=== PATIENT | female | born 1950 | race Caucasian/White ===

== ENCOUNTER 2017-01-14 21:24 | Inpatient (IN) | payer OTHER, MEDICARE, BC ==
[~2017-01-14] VITALS: Ht 160 cm; Wt 69.0 kg
[~2017-01-14 21:24] MED LIST: ALBU0.086 NEB; ALBU6.7H INH; BUSP10 PO; DOXY100T PO; FIORIC PO; FLUO60TA PO; HALO1TAB25 PO; ROBIDM5S PO
[2017-01-14 21:43] VITALS: BP 114/63; PULSE 85; RESP 20; O2SAT 99
[2017-01-14] MEDS ORDERED: SODIUM CHLOR 0.9% 1000 ML INJ 1,000 ML IV SCH (21:57)
[2017-01-14] MEDS ORDERED: ONDANSETRON HCL 4 MG/2 ML VIAL IVP ONE (22:00)
[2017-01-14] MEDS ORDERED: SODIUM CHLORIDE 0.9% FLUSH 5 ML FLUSH IVF PRN (22:00)
[2017-01-14] MEDS ORDERED: DIPHTH/TETANUS/ACEL PERTUSSIS (BOOSTER) 0.5 ML VIAL/PFS IM ONE (22:00)
[2017-01-14 22:01] VITALS: RESP 18; O2SAT 100
[2017-01-14 22:07] VITALS: BP 107/58; PULSE 60; RESP 18; O2SAT 100
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
[2017-01-14 22:24] LABS: BASOPHIL # 0.1 TH/MM3 (0-0.2); BASOPHIL % 0.4 % (0.0-2.0); EOSINOPHIL # 0.3 TH/MM3 (0-0.4); EOSINOPHIL % 1.6 % (0.0-4.0); LYMPH % 26.9 % (9.0-44.0); LYMPHOCYTE # 5.3 TH/MM3 (1.0-4.8); MEAN CELL VOLUME 89.2 FL (80.0-100.0); MEAN CORPUSCULAR HEMOGLOBIN 29.7 PG (27.0-34.0); MEAN CORPUSCULAR HGB CONC 33.4 % (32.0-36.0); MONO % 5.7 % (0.0-8.0); NEUT % 65.4 % (16.0-70.0); PLATELET COUNT 322 TH/MM3 (150-450); RED BLOOD COUNT 3.81 MIL/MM3 (4.00-5.30); RED CELL DISTRIBUTION WIDTH 12.9 % (11.6-17.2); WHITE BLOOD COUNT 19.8 TH/MM3 (4.0-11.0)
[2017-01-14 22:26] LABS: HEMO FLAGS AUTO DIFF
[2017-01-14 22:40] VITALS: BP 117/56; PULSE 80; RESP 18; O2SAT 99
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
[2017-01-14 22:42] LABS: APTT (PATIENT) 22.4 SEC (24.3-30.1); BICARBONATE 27.4 MEQ/L (21.0-32.0); INTERNATIONAL NORMALIZED RATIO 1.1 RATIO; POTASSIUM 3.2 MEQ/L (3.5-5.1); PROTHROMBIN TIME - PATIENT 11.8 SEC (9.8-11.6)
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
[2017-01-14] MEDS ORDERED: MORPHINE SULFATE 4 MG/ML INJ IV PUSH ONE ×2 (23:00→23:45)
[2017-01-14 23:02] LABS: BANDS 2 % (0-6); EOSINOPHILS 2 % (0-4); MYELOCYTES 1 % (0-0); NEUTROPHIL # MANUAL DIFF 13.9 TH/MM3 (1.8-7.7); PLATELET ESTIMATE SMEAR NORMAL (NORMAL); PLATELET MORPHOLOGY NORMAL (NORMAL); POLYS (SEG NEUTROPHILS) 67 % (16-70); WBC DIFF SAMPLE 100
[2017-01-14 23:03] LABS: SCAN/DIFF FINAL DIFF MANUAL
[2017-01-14 23:16] VITALS: BP 126/59; PULSE 84; RESP 18; O2SAT 99
[2017-01-14] MEDS ORDERED: IOHEXOL 350 MG/ML 10 ML VIAL (for RAD DIAG) IV ONE (23:33)
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
[2017-01-15] VITALS (12 sets, daily range): BP systolic 97–118; BP diastolic 47–73; PULSE 69–105; RESP 15–18; TEMP 96.1–99.4; O2SAT 93–99
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
[2017-01-15] MEDS ORDERED: METOCLOPRAMIDE HCL 10 MG/2 ML VIAL IV PUSH ONE (00:15)
[2017-01-15] MEDS ORDERED: POTASSIUM CHLOR 20 MEQ PREMIX 100 ML IV ONE (01:30)
[2017-01-15] MEDS ORDERED: SODIUM CHLORIDE 0.9% FLUSH 5 ML FLUSH FLUSH PRN (01:30)
[2017-01-15] MEDS ORDERED: NALOXONE HCL 0.4 MG/ML AMP IV PRN (01:30)
[2017-01-15] MEDS ORDERED: ACETAMINOPHEN 325 MG TAB PO PRN (01:30)
[2017-01-15] MEDS ORDERED: MORPHINE SULFATE 4 MG/ML INJ IV PRN (01:30)
[2017-01-15] MEDS ORDERED: ONDANSETRON HCL 4 MG/2 ML VIAL IVP PRN (01:30)
[2017-01-15] MEDS: SODIUM CHLOR 0.9% 1000 ML INJ 1,000 ML IV SCH ×2 (01:50→12:30)
[2017-01-15] MEDS: MORPHINE SULFATE 4 MG/ML INJ IV PRN ×6 (04:23→21:21)
[2017-01-15] MEDS: SODIUM CHLORIDE 0.9% FLUSH 5 ML FLUSH FLUSH SCH ×2 (09:00→21:21)
--- NOTE | 2017-01-15 14:12 | EKG ---
Date Performed: 01/14/2017 Time Performed: 23:13:49 PTAGE: 66 years EKG: Sinus rhythm NORMAL ECG NO PREVIOUS TRACING DOCTOR: Dave Nick Interpretating Date/Time 01/15/2017 14:11:15
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
[2017-01-15] MEDS ORDERED: guaiFENesin/DEXTROMETHORPHAN 200 MG/20 MG/10 ML CUP PO PRN (15:00)
[2017-01-15] MEDS ORDERED: ALBUTEROL SULFATE 90 MCG/ACT HFA 8 GM INHALER INH PRN (15:00)
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
[2017-01-15] MEDS: RESP: ALBUTEROL 2.5 MG/3 ML NEB (SCH) NEB ×3 (15:49→23:06)
[2017-01-15 19:08] LABS: BLOOD, URINE SMALL (NEG); COMMENT (UR) CULTURE INDICATED; CULTURE IF INDICATED CULTURE INDICATED; GLUCOSE,URINE NEG (NEG); HYALINE CAST, URINE 1 /lpf (RARE); KETONE, URINE NEG (NEG); NITRITE,URINE NEG (NEG); PH, URINE 6.5 (5.0-8.5); SQUAMOUS EPITHELIAL CELL URINE <1 /hpf (0-5); URINE COLOR YELLOW (YELLW/STRAW)
[2017-01-15] MEDS: busPIRone HCL 10 MG TAB PO SCH (21:20)
[2017-01-15] MEDS: HALOPERIDOL 2 MG TAB PO SCH (21:20)
[2017-01-16] VITALS (7 sets, daily range): BP systolic 94–108; BP diastolic 47–59; PULSE 69–110; RESP 16–18; TEMP 96.4–98.8; O2SAT 93–99
[2017-01-16] MEDS: MORPHINE SULFATE 4 MG/ML INJ IV PRN ×4 (00:59→21:15)
[2017-01-16] MEDS: RESP: ALBUTEROL 2.5 MG/3 ML NEB (SCH) NEB ×6 (03:11→23:51)
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
[2017-01-16 08:03] LABS: BASOPHIL % 0.2 % (0.0-2.0); EOSINOPHIL # 0.1 TH/MM3 (0-0.4); EOSINOPHIL % 0.7 % (0.0-4.0); HEMATOCRIT 29.1 % (35.0-46.0); HEMO FLAGS DIFF FINAL; LYMPH % 16.8 % (9.0-44.0); LYMPHOCYTE # 2.5 TH/MM3 (1.0-4.8); MEAN CELL VOLUME 88.8 FL (80.0-100.0); MEAN CORPUSCULAR HEMOGLOBIN 29.6 PG (27.0-34.0); MEAN CORPUSCULAR HGB CONC 33.3 % (32.0-36.0); MONO % 8.2 % (0.0-8.0); NEUT % 74.1 % (16.0-70.0); PLATELET COUNT 246 TH/MM3 (150-450); RED BLOOD COUNT 3.27 MIL/MM3 (4.00-5.30); WHITE BLOOD COUNT 14.9 TH/MM3 (4.0-11.0)
[2017-01-16] MEDS: SODIUM CHLORIDE 0.9% FLUSH 5 ML FLUSH FLUSH SCH ×2 (08:04→19:45)
[2017-01-16] MEDS: busPIRone HCL 10 MG TAB PO SCH ×2 (08:04→19:44)
[2017-01-16] MEDS: FLUoxetine HCL 20 MG CAP PO SCH (08:04)
[2017-01-16] MEDS: SODIUM CHLOR 0.9% 1000 ML INJ 1,000 ML IV SCH ×2 (08:05→17:39)
[2017-01-16 08:28] LABS: BICARBONATE 23.9 MEQ/L (21.0-32.0); POTASSIUM 3.5 MEQ/L (3.5-5.1)
[2017-01-16] MEDS ORDERED: DEXAMETHASONE SOD PHOS 4 MG/ML VIAL ONE (09:52)
[2017-01-16] MEDS ORDERED: MIDAZOLAM HCL 2 MG/2 ML VIAL ONE (09:52)
[2017-01-16] MEDS ORDERED: FAMOTIDINE 20 MG/2 ML VIAL ONE (09:56)
[2017-01-16] MEDS ORDERED: VANCOMYCIN HCL 1000 MG VIAL ONE (09:59)
[2017-01-16] MEDS ORDERED: ceFAZolin 2 GM PREMIX 50 ML ONE (09:59)
[2017-01-16] MEDS ORDERED: GENTAMICIN SULFATE 80 MG/2 ML VIAL ONE (10:00)
[2017-01-16] MEDS ORDERED: ACETAMINOPHEN 1000 MG/100 ML VIAL IV ONE (10:05)
--- NOTE | 2017-01-16 12:37 | PD.OP ---
cc: Paulo Jean MD Operative Report Date of Surgery: Jan 16, 2017 Preoperative Diagnosis: Minimally displaced left proximal humerus fracture, minimally displaced left ulna shaft fracture, displaced proximal ulna fracture, dislocated left radial head, displaced left radial neck fracture Postoperative Diagnosis: Procedure: Open treatment of Monteggia fracture with open reduction internal fixation of left proximal ulna, open reduction internal fixation left radial neck Surgeon: Paulo Jean Operations Specialists(s): JEAN Barrios PA-C The surgical procedure was assisted by my physician publisher assistant. My P.A. presence was necessary throughout this case for the manipulation and positioning of the surgical extremity. My P.A. was assisting me throughout the duration of this procedure. The skill set of a physician publisher assistant was medically necessary to complete this procedure. During the surgical case the hvac/r service technician was working at the back table and the physician publisher assistant was directly assisting me. Operation and Findings: Patient was seen and evaluated preoperatively. Patient was found to have a displaced fracture dislocation of the left olecranon with radial neck fracture. The risk and benefits of the surgery were discussed in depth and informed consent was obtained. Risk of surgery include bleeding, infection, painful hardware, wound, case, elbow stiffness, elbow dislocation, loss of motion, elbow arthritis, injuries to arteries nerves or blood vessels, weakness and numbness of hand, as well as medical complications associated with general anesthesia. All questions were answered. Patient was brought to operating room. IV sedation and anesthesia were administered. Patient was placed into a lateral decubitus position. Timeout procedure was performed. IV antibiotics were administered prior to incision. The operative arm was prepped with alcohol followed by Hibiclens and draped in usual sterile fashion. Procedure began with a 6 inch incision over the olecranon. Subcutaneous tissue dissected with Bovie. Fracture site was visualized. Fascia was elevated around the fracture site. There was mild comminution of the fracture site. Fracture fragments were gently manipulated. A fracture tenaculum was used to aid in reduction. Multiple K wires were used for provisional fixation. The reduction of the ulna was confirmed under fluoroscopy. A Synthes proximal plate was selected. Plate was provisionally held with K wires 3.5 cortical screws were used to compress plate to bone. Multiple cortical screws were placed in the ulna shaft. Multiple locking screws were placed in the proximal ulna. All screws were predrilled and premeasured for appropriate length. Additional 2.7 cortical screws were placed outside of the plate to capture additional metaphyseal fragments. K wires were removed. Next attention was turned to the radial head. The radial head was visualized. The radial neck fracture was significantly displaced. The radial neck was now reduced up to the radial head. K wires were used to hold provisional fixation. [place] confirmed appropriate reduction of the radial head. A Synthes proximal radius plate was selected. Plate was provisionally held to bone with K wires. 2.4 cortical screws were used to compress plate to bone. Additional locking screws were placed proximally. Additional cortical screws were placed in the shaft. K wires were removed. Fluoroscopy confirmed excellent alignment of the radial neck. Final fluoroscopy revealed excellent of fractures well-placed hardware. Articular surface appeared to be in near anatomic alignment. The elbow joint and radiocapitellar joints were concentrically reduced. The distal ulna shaft fracture was also well aligned. Wound was now thoroughly irrigated. Incision was now closed with #1 Vicryl, 3-0 Vicryl, and masood. Sterile dressings were applied. Patient's placed a well molded well-padded splint. Patient was transferred to recovery in stable condition. Paulo Jean MD Jan 12, 2017 12:36 Paulo Jean MD Jan 16, 2017 12:36
[2017-01-16] MEDS ORDERED: Post-op Orders (for Pharmacy) MISC XX ONE (12:45)
[2017-01-16] MEDS ORDERED: MORPHINE SULFATE 4 MG/ML INJ IV PUSH PRN (12:45)
[2017-01-16] MEDS ORDERED: NEOSTIGMINE 3 MG/3 ML SYR IV ONE (12:49)
[2017-01-16] MEDS ORDERED: ePHEDrine/NS 25 MG/5 ML SYR IV ONE (12:49)
[2017-01-16] MEDS ORDERED: ONDANSETRON HCL 4 MG/2 ML VIAL IV PUSH ONE (12:49)
[2017-01-16] MEDS ORDERED: PHENYLEPH/NS 1000 MCG/10 ML SYR IV ONE (12:49)
[2017-01-16] MEDS ORDERED: PROPOFOL 200 MG/20 ML AMP IV ONE (12:49)
[2017-01-16] MEDS ORDERED: BACITRACIN TOP OINT 15 GM TUBE ONE (12:52)
[2017-01-16] MEDS ORDERED: LACTATED RINGER'S 1000 ML INJ 1,000 ML IV ONE (12:54)
[2017-01-16] MEDS ORDERED: fentaNYL CITRATE 250 MCG/5 ML AMP ONE (13:25)
--- NOTE | 2017-01-16 14:26 | RADRPT ---
EXAM DATE/TIME: 01/16/2017 12:17 [place] COMPARISON: ELBOW LEFT LIMITED (AP & LAT), January 14, 2017, 22:15. INDICATIONS : ORIF left elbow. MEDICAL HISTORY : None. SURGICAL HISTORY : None. ENCOUNTER: Subsequent ACUITY: 3 days PAIN SCORE: Non-responsive. LOCATION: Left proximal radius and ulna. FINDINGS: Two view examination of the left elbow demonstrates postsurgical changes following open reduction and internal fixation of fractures involving the proximal radius and ulna. The ulnar fracture demonstrat es multiple fragments. Extra medullary plates have been used for stabilization and realignment. There is good anatomic alignment of the joint. CONCLUSION: Satisfactory alignment of fracture fragments and joint following ORIF. Niall Roberto MD on January 16, 2017 at 14:23 Board Certified Radiologist. This report was verified electronically.
[2017-01-16] MEDS: ceFAZolin 2 GM PREMIX 50 ML IV SCH (17:38)
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
[2017-01-16] MEDS: ACETAMINOPHEN/HYDROcodone 325 MG/7.5 MG TAB PO PRN (19:44)
[2017-01-16] MEDS: HALOPERIDOL 2 MG TAB PO SCH (19:44)
--- NOTE | 2017-01-16 20:35 | RADRPT ---
EXAM DATE/TIME: 01/16/2017 20:07 [facility] COMPARISON: HUMERUS LEFT (MIN 2VWS), January 14, 2017, 22:09. INDICATIONS : Follow-up left shoulder fracture. MEDICAL HISTORY : None. SURGICAL HISTORY : None. ENCOUNTER: Subsequent ACUITY: 3 days PAIN SCORE: 10/10 LOCATION: Left shoulder. FINDINGS: Surgical neck fracture again seen of the left humerus with mild posterior displacement and angulation deformity. Greater tuberosity and articular surfaces appear intact. CONCLUSION: Surgical neck fracture of the left humerus with mild posterior displacement/angulation not significan tly changed. No other or new fracture demonstrated. Zach Benedict MD on January 16, 2017 at 20:32 Board Certified Radiologist. This report was verified electronically.
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
[2017-01-17] VITALS (8 sets, daily range): BP systolic 97–147; BP diastolic 49–93; PULSE 92–106; RESP 16–20; TEMP 97–99; O2SAT 95–100
[2017-01-17] MEDS: MORPHINE SULFATE 4 MG/ML INJ IV PRN ×5 (00:47→18:23)
[2017-01-17] MEDS: ceFAZolin 2 GM PREMIX 50 ML IV SCH (00:47)
[2017-01-17] MEDS: SODIUM CHLOR 0.9% 1000 ML INJ 1,000 ML IV SCH (03:17)
[2017-01-17] MEDS: RESP: ALBUTEROL 2.5 MG/3 ML NEB (SCH) NEB ×5 (03:57→19:46)
--- NOTE | 2017-01-17 06:41 | PD.ORT.PN ---
Subjective Subjective Remarks Resting in bed with pain controlled. She states that she has left posterior rib wall pain with deep breathing or coughs Objective Vitals Vital Signs Date Time Temp Pulse Resp B/P Pulse Ox O2 Delivery O2 Flow Rate FiO2 01/17/17 04:00 97.0 99 17 114/59 97 01/17/17 00:00 98.1 97 16 112/56 96 01/16/17 23:54 99 Nasal Cannula 21 01/16/17 20:00 98.8 102 16 104/55 96 01/16/17 16:00 110 01/16/17 14:37 96.4 98 16 94/55 94 01/16/17 14:00 98 15 113/60 97 Nasal Cannula 3 01/16/17 13:45 100 17 127/63 97 Nasal Cannula 3 01/16/17 13:30 95 17 108/46 95 Nasal Cannula 3 01/16/17 13:20 98.4 97 15 99/56 93 Nasal Cannula 3 01/16/17 07:30 98.5 82 16 106/59 98 I/O 01/16/17 01/16/17 01/16/17 01/17/17 01/17/17 01/17/17 07:00 15:00 23:00 07:00 15:00 23:00 Intake Total 480 ml 1150 ml 240 ml 240 ml Output Total 300 ml Balance 480 ml 850 ml 240 ml 240 ml Intake Oral 480 ml 0 ml 240 ml 240 ml Other 1150 ml Output Estimated Blood Loss 300 ml # Voids 3 1 1 2 # Bowel Movements 0 0 0 0 Result Diagram: 01/16/17 0649 01/16/17 0649 Objective Remarks LUE: + long arm splint. Weak movement of fingers secondary to pain. Intact sensation of the radial ulnar and median nerve distributions. Good capillary refills Assessment & Plan Assessment and Plan 1) Left [place] with radial head fracture open reduction internal fixation POD 1 2) Left minimally displaced distal ulna shaft fx 3) Left proximal humerus fx X-rays show left proximal humerus is still maintaining position and we'll continue to treat this conservatively. Maintain splint and sling and swath at all times. No range of motion of shoulder. Passive and active range of motion of all fingers. Nonweightbearing left upper extremity Plan for discharge to home with home health care Follow-up with Dr. Jean or PA in 2 weeks HARPAL MORRISON PA-C Jan 17, 2017 06:41
[2017-01-17] MEDS ORDERED: HYDR-3366 PO (06:43)
--- NOTE | 2017-01-17 06:45 | HHI.FF ---
Face to Face Verification Diagnosis: (1) Closed fracture of left proximal humerus (2) Fracture of distal end of left ulna (3) Fracture of proximal end of left radius and ulna Physical Therapy Gait training, Safety evaluation Occupational Therapy Left UE Weight Bearing: Non WB Left UE Range of Motion: No ROM Nursing Nursing: Other Additional Instructions Nursing for bathing and activities of daily living 3 times a week I have seen patient Edith Asencio on 01/17/17. My clinical findings support the need for the requested home health care services because: Limited ability to care for self I certify that my clinical findings support that this patient is homebound because: Unsteady gait/balance HARPAL MORRISON PA-C Jan 17, 2017 06:45
[2017-01-17] MEDS: busPIRone HCL 10 MG TAB PO SCH ×2 (07:54→20:58)
[2017-01-17] MEDS: FLUoxetine HCL 20 MG CAP PO SCH (07:55)
[2017-01-17 08:53] LABS: HEMATOCRIT 24.8 % (35.0-46.0); MEAN CELL VOLUME 89.3 FL (80.0-100.0); MEAN CORPUSCULAR HEMOGLOBIN 29.9 PG (27.0-34.0); MEAN CORPUSCULAR HGB CONC 33.5 % (32.0-36.0); PLATELET COUNT 229 TH/MM3 (150-450); RED BLOOD COUNT 2.77 MIL/MM3 (4.00-5.30); RED CELL DISTRIBUTION WIDTH 13.2 % (11.6-17.2); REVIEW FLAG FINAL; WHITE BLOOD COUNT 17.5 TH/MM3 (4.0-11.0)
[2017-01-17 09:11] LABS: BICARBONATE 27.1 MEQ/L (21.0-32.0); POTASSIUM 3.4 MEQ/L (3.5-5.1)
[2017-01-17] MEDS ORDERED: POTASSIUM CL 40 MEQ/30 ML LIQ UDC PO ONE (10:30)
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
--- NOTE | 2017-01-17 11:25 | RADRPT ---
EXAM DATE/TIME: 01/17/2017 11:06 [facility] COMPARISON: CHEST PA & LAT, April 15, 2014, 20:03. INDICATIONS : Cough. MEDICAL HISTORY : Chronic obstructive pulmonary disease. Asthma SURGICAL HISTORY : Augmentation. ENCOUNTER: Subsequent ACUITY: 4 - 6 days PAIN SCORE: 0/10 LOCATION: Bilateral chest FINDINGS: PA and lateral views of the chest demonstrate minimal bibasilar density. Left lung clear. Heart apolinar l in size The cardiomediastinal contours are unremarkable. Fracture left proximal humerus. CONCLUSION: Minimal right basilar density could be atelectasis or infiltrate. Houston Vasquez MD on January 17, 2017 at 11:23 Board Certified Radiologist. This report was verified electronically.
[2017-01-17] MEDS: SODIUM CHLORIDE 0.9% FLUSH 5 ML FLUSH FLUSH SCH ×2 (11:51→20:58)
[2017-01-17] MEDS: ACETAMINOPHEN/HYDROcodone 325 MG/7.5 MG TAB PO PRN ×2 (14:16→20:23)
[2017-01-17] MEDS: AZITHROMYCIN 250 MG TAB PO SCH (18:23)
[2017-01-17] MEDS: HALOPERIDOL 2 MG TAB PO SCH (20:58)
[2017-01-18] VITALS: BP 112/53; PULSE 87; RESP 16; TEMP 98.2; O2SAT 96
[2017-01-18] MEDS: RESP: ALBUTEROL 2.5 MG/3 ML NEB (SCH) NEB ×4 (00:17→12:04)
[2017-01-18 04:00] VITALS: BP 117/62; PULSE 91; RESP 17; TEMP 97.5; O2SAT 97
[2017-01-18] MEDS: ACETAMINOPHEN/HYDROcodone 325 MG/7.5 MG TAB PO PRN ×4 (04:22→14:21)
[2017-01-18] MEDS ORDERED: SENNOSIDES 8.6 MG TAB PO PRN (04:45)
[2017-01-18] MEDS ORDERED: MAGNESIUM HYDROXIDE SUSP 30 ML CUP PO PRN (05:00)
--- NOTE | 2017-01-18 06:45 | PD.ORT.PN ---
Subjective Subjective Remarks POD 2 s/p ORIF left proximal ulna and left radial head s/p left distal ulna and proximal humerus fxs doing well. reports pain. Objective Vitals Vital Signs Date Time Temp Pulse Resp B/P Pulse Ox O2 Delivery O2 Flow Rate FiO2 01/18/17 04:00 97.5 91 17 117/62 97 01/18/17 00:00 98.2 87 16 112/53 96 01/17/17 19:46 95 21 01/17/17 19:10 98.7 92 18 97/49 95 01/17/17 19:01 Room Air 01/17/17 15:25 99.0 106 20 147/93 95 01/17/17 08:00 98.1 92 19 99/49 100 01/17/17 07:54 99 01/17/17 07:14 96 Nasal Cannula 2.00 01/17/17 06:55 Room Air I/O 01/17/17 01/17/17 01/17/17 01/18/17 01/18/17 01/18/17 07:00 15:00 23:00 07:00 15:00 23:00 Intake Total 240 ml 240 ml Balance 240 ml 240 ml Intake Oral 240 ml 240 ml # Voids 2 1 # Bowel Movements 0 0 Result Diagram: 01/17/1715 01/17/1715 Objective Remarks LUE: + long arm splint. Weak movement of fingers secondary to pain. Intact sensation of the radial ulnar and median nerve distributions. Good capillary refills Assessment & Plan Assessment and Plan 1) Left [place] with radial head fracture open reduction internal fixation POD 2 2) Left minimally displaced distal ulna shaft fx 3) Left proximal humerus fx X-rays show left proximal humerus is still maintaining position and we'll continue to treat this conservatively. Maintain splint and sling and swath at all times. No range of motion of shoulder. Passive and active range of motion of all fingers. Nonweightbearing left upper extremity Plan for discharge to home with home health care Follow-up with Dr. Jean or PA in 2 weeks [place] Jan 18, 2017 06:45
[2017-01-18 07:02] LABS: HEMATOCRIT 25.6 % (35.0-46.0); MEAN CELL VOLUME 89.5 FL (80.0-100.0); MEAN CORPUSCULAR HEMOGLOBIN 29.6 PG (27.0-34.0); MEAN CORPUSCULAR HGB CONC 33.1 % (32.0-36.0); PLATELET COUNT 277 TH/MM3 (150-450); RED BLOOD COUNT 2.86 MIL/MM3 (4.00-5.30); RED CELL DISTRIBUTION WIDTH 12.8 % (11.6-17.2); REVIEW FLAG FINAL; WHITE BLOOD COUNT 14.8 TH/MM3 (4.0-11.0)
[2017-01-18] MEDS: FLUoxetine HCL 20 MG CAP PO SCH (07:53)
[2017-01-18] MEDS: busPIRone HCL 10 MG TAB PO SCH (07:53)
[2017-01-18] MEDS: AZITHROMYCIN 250 MG TAB PO SCH (07:58)
[2017-01-18 08:00] VITALS: BP 101/52; PULSE 89; RESP 18; TEMP 97.9; O2SAT 95
[2017-01-18] MEDS ORDERED: POTASSIUM CHLORIDE 20 MEQ CONTROLLED RELEASE TAB PO ONE (08:15)
[2017-01-18 08:46] VITALS: O2SAT 96
[2017-01-18 08:55] VITALS: PULSE 92
[2017-01-18] MEDS ORDERED: DOCUSATE SODIUM 100 MG CAP PO SCH (09:00)
[2017-01-18] MEDS ORDERED: POLYETHYLENE GLYCOL 17 GM PKG PO SCH (09:00)
[2017-01-18 12:00] VITALS: BP 121/50; PULSE 97; RESP 18; TEMP 96.6; O2SAT 96
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
[2017-01-18] MEDS ORDERED: ZITH250T PO (12:48)
--- NOTE | 2017-01-18 12:49 | HHI.DCPOC ---
Discharge Care Plan Diagnosis: (1) Closed fracture of left proximal humerus (2) Fracture of distal end of left ulna (3) Fracture of proximal end of left radius and ulna (4) Asthma (5) Adjustment disorder Your Health Problems Are: Difficulty with ADL Inflammation Swelling Goals to Promote Your Health * To prevent worsening of your condition and complications * To maintain your health at the optimal level Directions to Meet Your Goals Take your medications as prescribed Follow your dietary instruction Follow activity as directed Keep your appointments as scheduled Take your immunizations and boosters as scheduled If your symptoms worsen call your PCP, if no PCP go to Urgent Care Center or Emergency Room Smoking is Dangerous to Your Health. Avoid second hand smoke Call the 24-hour hour crisis hotline for domestic abuse at Adriane Liu Jan 18, 2017 12:49
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
== END 2017-01-18 15:56 | disposition home health service (06) | DRG 511 ==
LOC: NEPE 21:24 → NEDA 01-15 00:21 → N06A 01-15 02:40
PROVIDERS: ADMIT Specialist; ATTEND Specialist
PROC: 0PSL04Z Reposition Left Ulna with Internal Fixation Device, Open Approach (ICD-10-PCS; principal; 2017-01-16 10:06)
DX: S52.132A Displaced fracture of neck of left radius, initial encounter for closed fracture (principal); N17.9 Acute kidney failure, unspecified; I95.9 Hypotension, unspecified; J44.9 Chronic obstructive pulmonary disease, unspecified; N39.0 Urinary tract infection, site not specified; S42.212A Unspecified displaced fracture of surgical neck of left humerus, initial encounter for closed fracture; S59.002A Unspecified physeal fracture of lower end of ulna, left arm, initial encounter for closed fracture; S52.002A Unspecified fracture of upper end of left ulna, initial encounter for closed fracture; E87.6 Hypokalemia; D64.9 Anemia, unspecified; J45.909 Unspecified asthma, uncomplicated; S01.01XA Laceration without foreign body of scalp, initial encounter; F31.9 Bipolar disorder, unspecified; K21.9 Gastro-esophageal reflux disease without esophagitis; V49.40XA Driver injured in collision with unspecified motor vehicles in traffic accident, initial encounter; Y92.410 Unspecified street and highway as the place of occurrence of the external cause; Z87.891 Personal history of nicotine dependence
CPT/HCPCS: 70450; 71010; 71020; 71101; 71260; 72125; 73030; 73060; 73070; 73090; 74177; 76000; 80048; 81001; 83735; 85007; 85025; 85027; 85610; 85730; 86850; 86900; 86901; 87086; 90471; 90715; 93005; 94150; 94640; 94664; 96361; 96374; 96375; 96376; C1713; J0131; J0690; J1100; J1580; J2250; J2270; J2370; J2405; J2710; J2765; J3010; J3370; J3480; J7030; J7120; J7613; L0150; Q9967

== ENCOUNTER 2017-04-13 21:59 | Emergency (ER) | payer MEDICARE, BC ==
[~2017-04-13] VITALS: Ht 172.7 cm; Wt 69.0 kg
[~2017-04-13 21:59] MED LIST changes: -ALBU0.086 NEB; -DOXY100T PO; +HYDR-3366 PO; +ZITH250T PO
[2017-04-13 22:01] VITALS: BP 135/60; PULSE 78; RESP 16; TEMP 98.7; O2SAT 97
[2017-04-13] MEDS ORDERED: ASPI81CH CHEW (23:26)
[2017-04-13] MEDS ORDERED: PROZ40CA PO (23:26)
[2017-04-13] MEDS ORDERED: HYDR-3288 PO (23:26)
[2017-04-13] MEDS ORDERED: BUSP10TA PO (23:26)
[2017-04-13] MEDS ORDERED: ZOCO5TAB PO (23:26)
[2017-04-13] MEDS ORDERED: SENN8.6T25 (23:26)
[2017-04-13] MEDS ORDERED: HALO2TAB PO (23:26)
[2017-04-13] MEDS ORDERED: SODIUM CHLOR 0.9% 1000 ML INJ 1,000 ML IV SCH (23:44)
[2017-04-13] MEDS ORDERED: PANTOPRAZOLE SODIUM 40 MG VIAL IVP ONE (23:45)
[2017-04-13] MEDS ORDERED: MORPHINE SULFATE 4 MG/ML INJ IV PUSH ONE (23:45)
[2017-04-13] MEDS ORDERED: ONDANSETRON HCL 4 MG/2 ML VIAL IVP ONE (23:45)
--- NOTE | 2017-04-13 23:50 | PD ---
HPI Chief Complaint: Abdominal Pain Time Seen by Provider: 23:37 Travel History International Travel<30 days: No Contact w/Intl Traveler<30days: No Traveled to known affect area: No History of Present Illness HPI 66-year-old female complains of abdominal pain with nausea vomiting. Patient states that the symptoms started this morning. Patient states the pain in cramping pain and sharp pain localized to lower abdomen. Patient denies any pain radiation. Patient denies any dysuria or frequency. Patient denies any vaginal discharge or bleeding. Patient denies any back pain. Patient status post laparoscopic abdominal surgery in the past for endometriosis. On a scale of 1-10 the pain is a 10. Patient's on hydrocodone routinely for left arm pain. Patient has history of COPD. Patient also has history anxiety, depression. PFSH Past Medical History Asthma: Yes Anxiety: Yes Depression: Yes Cancer: No Cardiovascular Problems: No COPD: Yes Diabetes: No Diminished Hearing: No Endocrine: No Immune Disorder: No Musculoskeletal: No Neurologic: No Psychiatric: Yes Respiratory: Yes (ASTHMA) ?: Not Menopausal: Yes : 4 Para: 2 : 2 Tubal Ligation: Yes Past Surgical History Abdominal Surgery: Yes (LAPOROSCOPY) Cardiac Surgery: No Ear Surgery: No Endocrine Surgery: No Eye Surgery: No Gynecologic Surgery: No Oral Surgery: No Thoracic Surgery: No Other Surgery: Yes (COSMETIC SX. NOSE,KING. BREAST AUGMENTATION) Social History Alcohol Use: No (SOBER SINCE NOVEMBER 2013) Tobacco Use: No Substance Use: No Allergies-Medications (Allergen,Severity, Reaction): Coded Allergies: No Known Allergies (Unverified , 04/13/17) Reported Meds & Prescriptions Reported Meds & Active Scripts Active Reported [place] (Hydrocodone-Acetaminophen) 7.5-325 mg Tab 1 Tab PO Q6H PRN Senna Laxative (Sennosides) 8.6 Mg Tab Aspirin 81 Mg Chew 81 Mg CHEW DAILY Zocor (Simvastatin) 5 Mg Tab 5 Mg PO DAILY Haloperidol 2 Mg Tab 2 Mg PO DAILY Buspirone (Buspirone HCl) 10 Mg Tab 10 Mg PO TID Prozac (Fluoxetine HCl) 40 Mg Cap 40 Mg PO DAILY Review of Systems General / Constitutional: No: Fever Eyes: No: Visual changes HENT: No: Headaches Cardiovascular: No: Chest Pain or Discomfort Respiratory: No: Shortness of Breath Gastrointestinal: Positive: Nausea, Vomiting, Abdominal Pain Genitourinary: No: Dysuria Musculoskeletal: No: Pain Skin: No Rash Neurologic: No: Weakness Psychiatric: No: Depression Endocrine: No: Polydipsia Hematologic/Lymphatic: No: Easy Bruising Physical Exam Narrative GENERAL: Well-nourished, well-developed patient. SKIN: Focused skin assessment warm/dry. HEAD: Normocephalic. EYES: No scleral icterus. No injection or drainage. NECK: Supple, trachea midline. No JVD or lymphadenopathy. CARDIOVASCULAR: Regular rate and rhythm without murmurs, gallops, or rubs. RESPIRATORY: Breath sounds equal bilaterally. No accessory muscle use. GASTROINTESTINAL: Abdomen soft, nondistended. Patient has moderate tenderness on palpation lower abdomen. No rebound tenderness. No mass. MUSCULOSKELETAL: No cyanosis, or edema. BACK: Nontender without obvious deformity. No CVA tenderness. Neurologic exam normal. Data Data Last Documented VS Vital Signs Date Time Temp Pulse Resp B/P Pulse Ox O2 Delivery O2 Flow Rate FiO2 04/13/17 22:01 98.7 78 16 135/60 97 Room Air Orders Complete Blood Count With Diff (04/13/17 23:44) Comprehensive Metabolic Panel (04/13/17 23:44) Lipase (04/13/17 23:44) Prothrombin Time / Inr (Pt) (04/13/17 23:44) Act Partial Throm Time (Ptt) (04/13/17 23:44) Urinalysis - C+S If Indicated (04/13/17 23:44) Ct Abd/Pel W Iv Contrast(Rout) (04/13/17 23:44) Iv Access Insert/Monitor (04/13/17 23:44) Ecg Monitoring (04/13/17 23:44) Oximetry (04/13/17 23:44) Morphine Inj (Morphine Inj) (04/13/17 23:45) Ondansetron Inj (Zofran Inj) (04/13/17 23:45) Pantoprazole Inj (Protonix Inj) (04/13/17 23:45) Sodium Chlor 0.9% 1000 Ml Inj (Ns 1000 M (04/13/17 23:44) Electrocardiogram (04/13/17 23:44) Labs Laboratory Tests Test 04/13/17 23:55 White Blood Count 14.3 TH/MM3 Red Blood Count 4.50 MIL/MM3 Hemoglobin 13.2 GM/DL Hematocrit 38.6 % Mean Corpuscular Volume 85.9 FL Mean Corpuscular Hemoglobin 29.4 PG Mean Corpuscular Hemoglobin 34.2 % Concent Red Cell Distribution Width 13.2 % Platelet Count 313 TH/MM3 Mean Platelet Volume 7.7 FL Neutrophils (%) (Auto) 67.9 % Lymphocytes (%) (Auto) 22.9 % Monocytes (%) (Auto) 6.0 % Eosinophils (%) (Auto) 2.0 % Basophils (%) (Auto) 1.2 % Neutrophils # (Auto) 9.7 TH/MM3 Lymphocytes # (Auto) 3.3 TH/MM3 Monocytes # (Auto) 0.9 TH/MM3 Eosinophils # (Auto) 0.3 TH/MM3 Basophils # (Auto) 0.2 TH/MM3 CBC Comment DIFF FINAL Differential Comment Prothrombin Time 10.6 SEC Prothromb Time International 1.0 RATIO Ratio Activated Partial 22.7 SEC Thromboplast Time Sodium Level 137 MEQ/L Potassium Level 4.2 MEQ/L Chloride Level 102 MEQ/L Carbon Dioxide Level 25.0 MEQ/L Anion Gap 10 MEQ/L Blood Urea Nitrogen 6 MG/DL Creatinine 0.80 MG/DL Estimat Glomerular Filtration 71 ML/MIN Rate Random Glucose 93 MG/DL Calcium Level 9.8 MG/DL Total Bilirubin 0.7 MG/DL Aspartate Amino Transf 25 U/L (AST/SGOT) Alanine Aminotransferase 18 U/L (ALT/SGPT) Alkaline Phosphatase 151 U/L Total Protein 8.6 GM/DL Albumin 4.5 GM/DL Lipase 198 U/L [facility] Medical Decision Making Medical Screen Exam Complete: Yes Emergency Medical Condition: Yes Interpretation(s) 12:54 AM. CBC WBC 14.3. Normal differential. CMP within normal limit. Alkaline phosphatase 151. Differential Diagnosis Differential diagnosis including colitis, UTI, pyelonephritis, nephrolithiasis. Narrative Course 66-year-old female with abdominal pain and nausea vomiting. Bryan Fuller MD Apr 13, 2017 23:50
[2017-04-14] LABS: AUTOMATED NEUTROPHIL # 9.7 TH/MM3 (1.8-7.7); BASOPHIL # 0.2 TH/MM3 (0-0.2); BASOPHIL % 1.2 % (0.0-2.0); EOSINOPHIL # 0.3 TH/MM3 (0-0.4); HEMATOCRIT 38.6 % (35.0-46.0); HEMO FLAGS DIFF FINAL; LYMPH % 22.9 % (9.0-44.0); LYMPHOCYTE # 3.3 TH/MM3 (1.0-4.8); MEAN CELL VOLUME 85.9 FL (80.0-100.0); MEAN CORPUSCULAR HEMOGLOBIN 29.4 PG (27.0-34.0); MEAN CORPUSCULAR HGB CONC 34.2 % (32.0-36.0); NEUT % 67.9 % (16.0-70.0); PLATELET COUNT 313 TH/MM3 (150-450); RED CELL DISTRIBUTION WIDTH 13.2 % (11.6-17.2); WHITE BLOOD COUNT 14.3 TH/MM3 (4.0-11.0)
[2017-04-14 00:09] LABS: APTT (PATIENT) 22.7 SEC (24.3-30.1); PROTHROMBIN TIME - PATIENT 10.6 SEC (9.8-11.6)
[2017-04-14 00:21] LABS: ALKALINE PHOSPHATASE 151 U/L (45-117); TOTAL BILIRUBIN ADULT 0.7 MG/DL (0.2-1.0)
[2017-04-14 00:25] LABS: ALT (GPT) 18 U/L (10-53); ANION GAP 10 MEQ/L (5-15); AST (GOT) 25 U/L (15-37); BLOOD UREA NITROGEN 6 MG/DL (7-18); CHLORIDE 102 MEQ/L (98-107); GLOMERULAR FILTRATION RATE 71 ML/MIN (>89); POTASSIUM 4.2 MEQ/L (3.5-5.1); SODIUM (NA) 137 MEQ/L (136-145)
[2017-04-14] MEDS ORDERED: LEVOFLOXACIN 750 MG PREMIX INJ 150 ML IV ONE (01:15)
[2017-04-14] MEDS ORDERED: metroNIDAZOLE 500 MG INJ 100 ML IV ONE (01:15)
[2017-04-14 01:40] VITALS: BP 152/68; PULSE 84; RESP 14; O2SAT 94
[2017-04-14] MEDS ORDERED: IOHEXOL 350 MG/ML 10 ML VIAL (for RAD DIAG) IV ONE (01:43)
--- NOTE | 2017-04-14 02:20 | RADRPT ---
EXAM DATE/TIME: 04/14/2017 01:37 [facility] COMPARISON: CT ABDOMEN & PELVIS W CONTRAST, January 14, 2017, 23:30. INDICATIONS : Lower abdominal pain. IV CONTRAST: 100 cc Omnipaque 350 (iohexol) IV ORAL CONTRAST: No oral contrast ingested. RADIATION DOSE: 6.60 CTDIvol (mGy) MEDICAL HISTORY : None SURGICAL HISTORY : Tubal ligation. ENCOUNTER: Initial ACUITY: 1 day PAIN SCALE: 5/10 LOCATION: abdomen TECHNIQUE: Volumetric scanning of the abdomen and pelvis was performed. Using automated exposure control and ad justment of the mA and/or kV according to patient size, radiation dose was kept as low as reasonably achievable to obtain optimal diagnostic quality images. FINDINGS: The liver and spleen are free of focal defects. The gallbladder and pancreas demonstrate no abnormali ty. The adrenal glands are normal. The kidneys demonstrate no evidence of solid renal mass or hydrone phrosis. No free fluid or abdominal masses are identified. No para-aortic adenopathy is seen. There is findings of diverticulitis involving sigmoid colon with wall thickening but no evidence of a bscess. No free fluid is identified. No adnexal masses are identified. A small amount of fluid is pre sent within the pelvis within the physiologic range. CONCLUSION: 1. Diverticulitis in the sigmoid colon without evidence of abscess Ren Quiñonez MD on April 14, 2017 at 2:10 Board Certified Radiologist. This report was verified electronically.
[2017-04-14 02:50] VITALS: BP 128/66; PULSE 88; RESP 16; O2SAT 100
[2017-04-14 02:54] LABS: BLOOD, URINE TRACE (NEG); COMMENT (UR) CULT NOT INDICATED; CULTURE IF INDICATED CULT NOT INDICATED; GLUCOSE,URINE NEG (NEG); KETONE, URINE NEG (NEG); MUCUS URINE FEW /lpf (OCC); NITRITE,URINE NEG (NEG); PH, URINE 5.5 (5.0-8.5); URINE COLOR COLORLESS (YELLW/STRAW)
[2017-04-14] MEDS ORDERED: LEVO500T8 PO (03:32)
[2017-04-14] MEDS ORDERED: ZOFR4TAB PO (03:32)
[2017-04-14] MEDS ORDERED: METR-1 PO (03:32)
--- NOTE | 2017-04-14 03:33 | PD ---
Physical Exam Date Seen by Provider: Apr 14, 2017 Time Seen by Provider: 03:32 Narrative GENERAL: This is a well-nourished, well-developed patient, in no apparent distress. SKIN: No rashes, ecchymoses or lesions. Warm and dry. HEAD: Atraumatic. Normocephalic. EYES: PERRL, EOMI, no discharge or injection. No scleral icterus. EARS: Clear NOSE: Nasal turbinates appear normal. THROAT: Mucosa pink and moist. Airway patent. NECK: Trachea midline. supple, moves head freely. LUNGS: Clear to auscultation. CV: Regular in rhythm. ABDOMEN: Soft, tender in the left lower quadrant. Minimal guarding but no rebound. EXT: No clubbing cyanosis or edema. Data Data Last Documented VS Vital Signs Date Time Temp Pulse Resp B/P Pulse Ox O2 Delivery O2 Flow Rate FiO2 04/13/17 22:01 98.7 78 16 135/60 97 Room Air Orders Complete Blood Count With Diff (04/13/17 23:44) Comprehensive Metabolic Panel (04/13/17 23:44) Lipase (04/13/17 23:44) Prothrombin Time / Inr (Pt) (04/13/17 23:44) Act Partial Throm Time (Ptt) (04/13/17 23:44) Urinalysis - C+S If Indicated (04/13/17 23:44) Ct Abd/Pel W Iv Contrast(Rout) (04/13/17 23:44) Iv Access Insert/Monitor (04/13/17 23:44) Ecg Monitoring (04/13/17 23:44) Oximetry (04/13/17 23:44) Morphine Inj (Morphine Inj) (04/13/17 23:45) Ondansetron Inj (Zofran Inj) (04/13/17 23:45) Pantoprazole Inj (Protonix Inj) (04/13/17 23:45) Sodium Chlor 0.9% 1000 Ml Inj (Ns 1000 M (04/13/17 23:44) Electrocardiogram (04/13/17 23:44) Levofloxacin 750 Mg Premix Inj (Levaquin (04/14/17 01:15) Metronidazole 500 Mg Inj (Flagyl 500 Mg (04/14/17 01:15) Iohexol 350 Inj (Omnipaque 350 Inj) (04/14/17 01:43) Labs Laboratory Tests Test 04/13/17 04/14/17 23:55 01:24 White Blood Count 14.3 TH/MM3 Red Blood Count 4.50 MIL/MM3 Hemoglobin 13.2 GM/DL Hematocrit 38.6 % Mean Corpuscular Volume 85.9 FL Mean Corpuscular Hemoglobin 29.4 PG Mean Corpuscular Hemoglobin 34.2 % Concent Red Cell Distribution Width 13.2 % Platelet Count 313 TH/MM3 Mean Platelet Volume 7.7 FL Neutrophils (%) (Auto) 67.9 % Lymphocytes (%) (Auto) 22.9 % Monocytes (%) (Auto) 6.0 % Eosinophils (%) (Auto) 2.0 % Basophils (%) (Auto) 1.2 % Neutrophils # (Auto) 9.7 TH/MM3 Lymphocytes # (Auto) 3.3 TH/MM3 Monocytes # (Auto) 0.9 TH/MM3 Eosinophils # (Auto) 0.3 TH/MM3 Basophils # (Auto) 0.2 TH/MM3 CBC Comment DIFF FINAL Differential Comment Prothrombin Time 10.6 SEC Prothromb Time International 1.0 RATIO Ratio Activated Partial 22.7 SEC Thromboplast Time Sodium Level 137 MEQ/L Potassium Level 4.2 MEQ/L Chloride Level 102 MEQ/L Carbon Dioxide Level 25.0 MEQ/L Anion Gap 10 MEQ/L Blood Urea Nitrogen 6 MG/DL Creatinine 0.80 MG/DL Estimat Glomerular Filtration 71 ML/MIN Rate Random Glucose 93 MG/DL Calcium Level 9.8 MG/DL Total Bilirubin 0.7 MG/DL Aspartate Amino Transf 25 U/L (AST/SGOT) Alanine Aminotransferase 18 U/L (ALT/SGPT) Alkaline Phosphatase 151 U/L Total Protein 8.6 GM/DL Albumin 4.5 GM/DL Lipase 198 U/L Urine Color COLORLESS Urine Turbidity CLEAR Urine pH 5.5 Urine Specific David 1.001 Urine Protein NEG mg/dL Urine Glucose (UA) NEG mg/dL Urine Ketones NEG mg/dL Urine Occult Blood TRACE Urine Nitrite NEG Urine Bilirubin NEG Urine Urobilinogen LESS THAN 2.0 MG/DL Urine Leukocyte Esterase NEG Urine RBC LESS THAN 1 /hpf Urine WBC 1 /hpf Urine Mucus FEW /lpf Microscopic Urinalysis Comment CULT NOT INDICATED [facility] Medical Record Reviewed: Yes Supervised Visit with LEVI: Yes Interpretation(s) CBC & BMP Diagram 04/13/17 23:55 Last 24 hours Impressions Abdomen/Pelvis CT 04/13/17 2194 Signed Impressions: Service Date/Time: Friday, April 14, 2017 01:37 - CONCLUSION: 1. Diverticulitis in the sigmoid colon without evidence of abscess Ren Quiñonez MD Differential Diagnosis Differential diagnoses: Appendicitis, diverticulitis, enteritis, cholecystitis Narrative Course Patient's given IV Levaquin and Flagyl. Laboratory tests have been reviewed. CAT scan reveals sigmoid diverticulitis. The patient tolerating by mouth fluids. She is comfortable going home. Patient has Lortab at home for pain. She will be discharged home on Levaquin, Flagyl and Zofran This is acute sigmoid diverticulitis Diagnosis Primary Impression: acute sigmoid diverticulitis Patient Instructions: General Instructions Additional Instruction: Rest. Increase fluids. Levaquin and Flagyl. Zofran for nausea. Recheck with your doctor tomorrow or Monday. Return to the ER over the weekend if any problems or symptoms worsen. Med/Other Pt SpecificInfo: Prescription(s) given Scripts Ondansetron (Zofran)4 Mg Tab4 Mg PO Q6HR PRN (NAUSEA OR VOMITING) #12 TAB Prov:Bryan Fuller MD 04/14/17 Metronidazole (Flagyl)500 Mg [id number] Mg PO QID #40 TAB Ref 0 Prov:Bryan Fuller MD 04/14/17 Levofloxacin 500 Mg [id number] Mg PO DAILY #10 TAB Ref 0 Prov:Bryan Fuller MD 04/14/17 Disposition: DISCHARGE HOME Condition: Stable Lopez Moe Apr 14, 2017 03:33
[2017-04-14 03:35] VITALS: BP 144/62; PULSE 82; RESP 14; O2SAT 98
[2017-04-14 04:55] VITALS: BP 128/56; PULSE 74; RESP 14; O2SAT 99
== END 2017-04-14 05:19 | disposition home or self-care (01) ==
LOC: NEPD 21:59
DX: K57.32 Diverticulitis of large intestine without perforation or abscess without bleeding (principal)
CPT/HCPCS: 74177; 80053; 81001; 83690; 85025; 85610; 85730; 96361; 96365; 96367; 96375; 99285; C9113; J1956; J2270; J2405; J7030; Q9967

== ENCOUNTER 2017-09-23 00:06 | Observation (INO) | payer MEDICARE, BC ==
[~2017-09-23] VITALS: Ht 160 cm; Wt 66.0 kg
[2017-09-23] VITALS (13 sets, daily range): BP systolic 103–138; BP diastolic 52–63; PULSE 57–80; RESP 16–20; TEMP 96.8–98.1; O2SAT 94–100
[~2017-09-23 00:06] MED LIST changes: -ALBU6.7H INH; +ASPI-516 CHEW; -BUSP10 PO; +BUSP10TA PO; -FIORIC PO; -FLUO60TA PO; -HALO1TAB25 PO; +HALO2TAB PO; +HYDR-3288 PO; -HYDR-3366 PO; +LEVO500T8 PO; +METR-1 PO; +PROZ40CA PO; -ROBIDM5S PO; +SENN8.6T25; -ZITH250T PO; +ZOCO5TAB PO; +ZOFR4TAB PO
[2017-09-23] MEDS ORDERED: LORA0.5T PO (00:19)
[2017-09-23] MEDS ORDERED: LURA40 PO (00:19)
[2017-09-23] MEDS ORDERED: ASPIRIN 81 MG CHEW TAB PO ONE (00:45)
[2017-09-23] MEDS ORDERED: SODIUM CHLORID 0.9% 500 ML INJ 500 ML IV ONE (00:45)
[2017-09-23] MEDS ORDERED: SODIUM CHLORIDE 0.9% FLUSH 10 ML FLUSH IVF PRN (00:45)
[2017-09-23 01:09] LABS: AUTOMATED NEUTROPHIL # 6.6 TH/MM3 (1.8-7.7); BASOPHIL # 0.1 TH/MM3 (0-0.2); BASOPHIL % 0.5 % (0.0-2.0); EOSINOPHIL # 0.6 TH/MM3 (0-0.4); EOSINOPHIL % 4.4 % (0.0-4.0); HEMATOCRIT 35.4 % (35.0-46.0); HEMO FLAGS DIFF FINAL; LYMPH % 35.9 % (9.0-44.0); LYMPHOCYTE # 4.6 TH/MM3 (1.0-4.8); MEAN CELL VOLUME 90.6 FL (80.0-100.0); MEAN CORPUSCULAR HEMOGLOBIN 30.6 PG (27.0-34.0); MEAN CORPUSCULAR HGB CONC 33.8 % (32.0-36.0); MONO % 7.1 % (0.0-8.0); NEUT % 52.1 % (16.0-70.0); PLATELET COUNT 321 TH/MM3 (150-450); RED BLOOD COUNT 3.91 MIL/MM3 (4.00-5.30); WHITE BLOOD COUNT 12.7 TH/MM3 (4.0-11.0)
--- NOTE | 2017-09-23 01:09 | RADRPT ---
EXAM DATE/TIME: 09/23/2017 00:47 [facility] COMPARISON: CHEST SINGLE AP, January 14, 2017, 22:07. INDICATIONS : Chest pain, Nausea started 2-3 hours ago. MEDICAL HISTORY : Chronic obstructive pulmonary disease. Asthma. SURGICAL HISTORY : None. ENCOUNTER: Initial ACUITY: 1 day PAIN SCORE: 6/10 LOCATION: Left upper chest FINDINGS: A single view of the chest demonstrates the lungs to be symmetrically aerated without evidence of mas s, infiltrate or effusion. The cardiomediastinal contours are unremarkable. Osseous structures are intact. CONCLUSION: 1. No acute cardiopulmonary disease. Ren Quiñonez MD on September 23, 2017 at 1:07 Board Certified Radiologist. This report was verified electronically.
[2017-09-23 01:37] LABS: ALT (GPT) 28 U/L (10-53); ANION GAP 8 MEQ/L (5-15); AST (GOT) 22 U/L (15-37); BICARBONATE 26.4 MEQ/L (21.0-32.0); BLOOD UREA NITROGEN 7 MG/DL (7-18); CHLORIDE 104 MEQ/L (98-107); GLOMERULAR FILTRATION RATE 86 ML/MIN (>89); MAGNESIUM 2.1 MG/DL (1.5-2.5); POTASSIUM 3.5 MEQ/L (3.5-5.1); SODIUM (NA) 138 MEQ/L (136-145)
[2017-09-23 01:41] LABS: ALKALINE PHOSPHATASE 128 U/L (45-117); TOTAL BILIRUBIN ADULT 0.1 MG/DL (0.2-1.0)
--- NOTE | 2017-09-23 02:08 | PD ---
HPI Chief Complaint: Chest Pain Time Seen by Provider: 00:31 Travel History International Travel<30 days: No Contact w/Intl Traveler<30days: No Traveled to known affect area: No History of Present Illness HPI Is a 67-year-old woman presents emergent from with chest pains ongoing for the past 2-3 hours, on the left side of the chest, intermittent lasting seconds at a time. No clear aggravating or alleviating factors. She's never had a before. She is a history of asthma, COPD, tobacco use in the past, but no history of heart disease. She states she otherwise had been feeling generally well and healthy before the onset he symptoms. No other complaints. History Past Medical History Narrative Medical Asthma/COPD Anxiety/depression hyperlipidemia Menopausal: Yes : 4 Para: 2 Social History Alcohol Use: No (SOBER SINCE NOVEMBER 2013) Tobacco Use: No Allergies-Medications (Allergen,Severity, Reaction): Coded Allergies: No Known Allergies (Unverified Adverse Reaction, Unknown, 09/23/17) Reported Meds & Prescriptions Reported Meds & Active Scripts Active Zofran (Ondansetron HCl) 4 Mg Tab 4 Mg PO Q6HR PRN Reported Lorazepam 0.5 Mg Tab 0.5 Mg PO BID Latuda (Lurasidone) 40 Mg Tab 40 Mg PO DAILY Aspirin 81 Mg Chew 81 Mg CHEW DAILY Zocor (Simvastatin) 5 Mg Tab 5 Mg PO DAILY Haloperidol 2 Mg Tab 2 Mg PO DAILY Buspirone (Buspirone HCl) 10 Mg Tab 10 Mg PO TID Prozac (Fluoxetine HCl) 40 Mg Cap 40 Mg PO DAILY Review of Systems Except as stated in HPI: all other systems reviewed are Neg Physical Exam Narrative GENERAL: Well-appearing 67 year-old woman, no acute distress. SKIN: Focused skin assessment warm/dry. HEAD: Atraumatic. Normocephalic. EYES: Pupils equal and round. No scleral icterus. No injection or drainage. ENT: No nasal bleeding or discharge. Mucous membranes pink and moist. NECK: Trachea midline. No JVD. CARDIOVASCULAR: Regular rate and rhythm. No murmur appreciated. RESPIRATORY: No accessory muscle use. Clear to auscultation. Breath sounds equal bilaterally. GASTROINTESTINAL: Abdomen soft, non-tender, nondistended. Hepatic and splenic margins not palpable. MUSCULOSKELETAL: No obvious deformities. No clubbing. No cyanosis. No edema. NEUROLOGICAL: Awake and alert. No obvious cranial nerve deficits. Motor grossly within normal limits. Normal speech. PSYCHIATRIC: Appropriate mood and affect; insight and judgment normal. Data Data Last Documented VS Vital Signs Date Time Temp Pulse Resp B/P (MAP) Pulse Ox O2 Delivery O2 Flow Rate FiO2 09/23/17 00:56 99 Room Air 09/23/17 00:56 09/23/17 00:20 70 09/23/17 00:07 98.0 16 Orders Orders Electrocardiogram (09/23/17 00:44) Complete Blood Count With Diff (09/23/17 00:44) Comprehensive Metabolic Panel (09/23/17 00:44) Magnesium (Mg) (09/23/17 00:44) Troponin I (09/23/17 00:44) Chest, Single Ap (09/23/17 00:44) Ecg Monitoring (09/23/17 00:44) Bilateral Bp Monitoring (09/23/17 00:44) Iv Access Insert/Monitor (09/23/17 00:44) Oximetry (09/23/17 00:44) Oxygen Administration (09/23/17 00:44) Aspirin Chew (Aspirin Chew) (09/23/17 00:45) Sodium Chloride 0.9% Flush (Ns Flush) (09/23/17 00:45) Sodium Chlorid 0.9% 500 Ml Inj (Ns 500 M (09/23/17 00:45) Labs Laboratory Tests Test 09/23/17 00:50 White Blood Count 12.7 TH/MM3 Red Blood Count 3.91 MIL/MM3 Hemoglobin 12.0 GM/DL Hematocrit 35.4 % Mean Corpuscular Volume 90.6 FL Mean Corpuscular Hemoglobin 30.6 PG Mean Corpuscular Hemoglobin Concent 33.8 % Red Cell Distribution Width 13.0 % Platelet Count 321 TH/MM3 Mean Platelet Volume 7.3 FL Neutrophils (%) (Auto) 52.1 % Lymphocytes (%) (Auto) 35.9 % Monocytes (%) (Auto) 7.1 % Eosinophils (%) (Auto) 4.4 % Basophils (%) (Auto) 0.5 % Neutrophils # (Auto) 6.6 TH/MM3 Lymphocytes # (Auto) 4.6 TH/MM3 Monocytes # (Auto) 0.9 TH/MM3 Eosinophils # (Auto) 0.6 TH/MM3 Basophils # (Auto) 0.1 TH/MM3 CBC Comment DIFF FINAL Differential Comment Blood Urea Nitrogen 7 MG/DL Creatinine 0.68 MG/DL Random Glucose 83 MG/DL Total Protein 7.3 GM/DL Albumin 3.9 GM/DL Calcium Level 8.4 MG/DL Magnesium Level 2.1 MG/DL Alkaline Phosphatase 128 U/L Aspartate Amino Transf (AST/SGOT) 22 U/L Alanine Aminotransferase (ALT/SGPT) 28 U/L Total Bilirubin 0.1 MG/DL Sodium Level 138 MEQ/L Potassium Level 3.5 MEQ/L Chloride Level 104 MEQ/L Carbon Dioxide Level 26.4 MEQ/L Anion Gap 8 MEQ/L Estimat Glomerular Filtration Rate 86 ML/MIN Troponin I LESS THAN 0.02 NG/ML MDM Medical Decision Making Medical Screen Exam Complete: Yes Emergency Medical Condition: Yes Interpretation(s) My review of EKG: Normal sinus rhythm at a rate of 70, normal axis, normal intervals, no acute ischemia. LABS: CBC remarkable for white count 1.7 thousand CMP is unremarkable Troponin is negative. Chest x-ray: No acute disease. Differential Diagnosis Anxiety, ACS, arrhythmia, pneumothorax, precordial catch syndrome, other Narrative Course Medical decision making INITIAL: 67-year-old woman, intermittent chest pain, clinically low suspicion for ACS, low risk factors, no previous risk stratification. Recommend chest pain Center for further evaluation. Diagnosis Primary Impression: Chest pain Admitting Information Admitting Physician Requests: Dong Ordaz MD Sep 23, 2017 02:08
[2017-09-23] MEDS ORDERED: IOHEXOL 350 MG/ML 50 ML BTL (for Cath Lab) OTHER ONE (02:26)
[2017-09-23] MEDS ORDERED: SODIUM CHLORIDE 0.9% FLUSH 10 ML FLUSH IV FLUSH PRN (02:30)
[2017-09-23 04:35] LABS: CREATINE KINASE 94 U/L (26-192)
[2017-09-23 07:16] LABS: CREATINE KINASE 82 U/L (26-192)
[2017-09-23] MEDS ORDERED: TRAZ100T10 PO (08:05)
--- NOTE | 2017-09-23 08:31 | HHI.HP ---
HPI Primary Care Physician Unknown Chief Complaint Chest pain History of Present Illness This is a 67-year-old female with history of hyperlipidemia that presents with a complaint of chest discomfort. When asked to describe the chest discomfort she states "my heart felt hollow." She states that there is some nausea but that was present before the chest discomfort. Had no shortness of breath or diaphoresis. The discomfort will last maybe a second but continue to recur for about an hour and a half. It began while she was talking with her brother over the phone. Cannot recall having symptoms like this in the past. Cannot recall prior cardiac testing. Denies recent illnesses. Denies fevers or chills. Found nothing to bring on the discomfort. Review of Systems General: Patient denies fevers, chills recent, and recent travel HEENT: Patient denies headache, sore throat, difficulty swallowing. Cardiovascular: Has the chest discomfort as mentioned above. Denies sensation of heart beating rapidly or irregularly. No syncope. Denies diaphoresis. Respiratory: Denies shortness of breath or inspirational chest discomfort. Denies coughing wheezing or hemoptysis. GI: She was nauseous. Patient denies vomiting, diarrhea, abdominal pain, bloody stools. Musculoskeletal: Patient denies joint pain or edema. Denies calf pain or edema. Neurovascular: Patient denies numbness, tingling, weakness in extremities. Denies headache. Endocrine: Denies polyuria and polydipsia. Hematologic: Denies easy bruising. Skin: Denies rash or itching. Past Family Social History Allergies: Coded Allergies: No Known Allergies (Unverified Adverse Reaction, Unknown, 09/23/17) Past Medical History Hyperlipidemia, schizoaffective disorder, asthma, COPD, and past tobacco abuser. Denies diabetes, hypertension, and CAD. Past Surgical History Left elbow, rhinoplasty 2, breast augmentation. Reported Medications Reported Meds & Active Scripts Active Zofran (Ondansetron HCl) 4 Mg Tab 4 Mg PO Q6HR PRN Reported Trazodone (Trazodone HCl) 100 Mg Tablet 100 Mg PO HS Lorazepam 0.5 Mg Tab 0.5 Mg PO BID Latuda (Lurasidone) 40 Mg Tab 40 Mg PO DAILY Aspirin 81 Mg Chew 81 Mg CHEW DAILY Zocor (Simvastatin) 5 Mg Tab 5 Mg PO DAILY Haloperidol 2 Mg Tab 2 Mg PO DAILY Buspirone (Buspirone HCl) 10 Mg Tab 10 Mg PO TID Prozac (Fluoxetine HCl) 40 Mg Cap 40 Mg PO DAILY Active Ordered Medications Current Medications Medications (Trade) Dose Ordered Sig/Elaine Route Start Time Stop Time Status Last Admin (NS Flush) 2 ml UNSCH PRN IVF 09/23/17 00:45 (NS Flush) 2 ml UNSCH PRN IV FLUSH 09/23/17 02:30 (NS Flush) 2 ml BID IV FLUSH 09/23/17 09:00 Family History She states that her father at age 87 of an [place]. When asked if he had any earlier onset of heart issue she states "he was always in the hospital for pain." States her mother and siblings do not have CAD. Social History Patient quit smoking 3 years ago. Prior that she would smoke 2 pack of cigarettes daily for 30 years. She's had no alcohol for 3-1/2 years. Denies illicit drugs. She lives alone. 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 Physical Exam Vital Signs Vital Signs Date Time Temp Pulse Resp B/P (MAP) Pulse Ox O2 Delivery O2 Flow Rate FiO2 09/23/17 08:19 97.9 70 20 138/60 (86) 96 09/23/17 04:00 69 09/23/17 03:15 98.1 77 17 137/61 (86) 100 09/23/17 03:13 21 09/23/17 03:10 66 09/23/17 02:55 09/23/17 00:56 99 Room Air 09/23/17 00:56 99 Room Air 09/23/17 00:20 70 09/23/17 00:07 98.0 73 16 130/61 (84) 100 Room Air Physical Exam GENERAL: This is a well-nourished, well-developed patient, in no apparent distress. Patient speaks in clear complete sentences. Patient is pleasant. Patient was examined with a few monitor pharmacy picking tech at bedside. HEENT: Head is atraumatic and normocephalic. Neck is supple without lymphadenopathy and trachea is midline. No JVD or carotid bruits. CARDIOVASCULAR: Regular rate and rhythm without murmurs, gallops, or rubs. RESPIRATORY: Clear to auscultation. Breath sounds equal bilaterally. No wheezes , rales, or rhonchi. Chest wall is tender on left side but this does not feel similar to the discomfort she was having.. No use of accessory muscles. GASTROINTESTINAL: Abdomen is nontender, nondistended. Abdomen soft. No obvious pulsatile mass or bruit. No CVA tenderness. Strong femoral pulses bilaterally. Normal bowel sounds in all quadrants. MUSCULOSKELETAL: Patient is moving upper and lower extremities freely. No calf tenderness or edema, no Homans sign. Strong pulses in upper and lower extremities. NEUROLOGICAL: Patient is alert and oriented. Cranial nerves 2-12 are grossly intact. No focal deficits and speech is clear. SKIN: No rash and turgor is normal. Laboratory Laboratory Tests Test 09/23/17 00:50 09/23/17 03:48 09/23/17 06:36 White Blood Count 12.7 Red Blood Count 3.91 Hemoglobin 12.0 Hematocrit 35.4 Mean Corpuscular Volume 90.6 Mean Corpuscular Hemoglobin 30.6 Mean Corpuscular Hemoglobin Concent 33.8 Red Cell Distribution Width 13.0 Platelet Count 321 Mean Platelet Volume 7.3 Neutrophils (%) (Auto) 52.1 Lymphocytes (%) (Auto) 35.9 Monocytes (%) (Auto) 7.1 Eosinophils (%) (Auto) 4.4 Basophils (%) (Auto) 0.5 Neutrophils # (Auto) 6.6 Lymphocytes # (Auto) 4.6 Monocytes # (Auto) 0.9 Eosinophils # (Auto) 0.6 Basophils # (Auto) 0.1 CBC Comment DIFF FINAL Differential Comment Blood Urea Nitrogen 7 Creatinine 0.68 Random Glucose 83 Total Protein 7.3 Albumin 3.9 Calcium Level 8.4 Magnesium Level 2.1 Alkaline Phosphatase 128 Aspartate Amino Transf (AST/SGOT) 22 Alanine Aminotransferase (ALT/SGPT) 28 Total Bilirubin 0.1 Sodium Level 138 Potassium Level 3.5 Chloride Level 104 Carbon Dioxide Level 26.4 Anion Gap 8 Estimat Glomerular Filtration Rate 86 Troponin I LESS THAN 0.02 LESS THAN 0.02 LESS THAN 0.02 Total Creatine Kinase 94 82 Result Diagram: 09/23/174909/23/17 005 Imaging Last 48 hours Impressions Chest X-Ray 09/23/17 0044 Signed Impressions: Service Date/Time: Saturday, September 23, 2017 00:47 - CONCLUSION: 1. No acute cardiopulmonary disease. Ren Quiñonez MD Course EKGs are sinus rhythm without significant ST segment depressions or elevations. Caprini VTE Risk Assessment Caprini VTE Risk Assessment: Mod/High Risk (score >= 2) Caprini Risk Assessment Model Point Value = 1 Point Value = 2 Point Value = 3 Point Value = 5 Age 41-60 Minor surgery BMI > 25 kg/m2 Swollen legs Varicose veins or History of unexplained or recurrent spontaneous Oral contraceptives or hormone replacement Sepsis (< 1 month) Serious lung disease, including pneumonia (< 1 month) Abnormal pulmonary function Acute myocardial infarction Congestive heart failure (< 1 month) History of inflammatory bowel disease Medical patient at bed rest Age 61-74 Arthroscopic surgery Major open surgery (> 45 min) Laparoscopic surgery (> 45 min) Malignancy Confined to bed (> 72 hours) Immobilizing plaster cast Central venous access Age >= 75 History of VTE Family history of VTE Factor V Leiden Prothrombin [id number] Lupus anticoagulant Anticardiolipin antibodies Elevated serum homocysteine Heparin-induced thrombocytopenia Other congenital or acquired thrombophilia Stroke (< 1 month) Elective arthroplasty Hip, pelvis, or leg fracture Acute spinal cord injury (< 1 month) Prophylaxis Regimen Total Risk Factor Score Risk Level Prophylaxis Regimen 0-1 Low Early ambulation 2 Moderate Order ONE of the following: *Sequential Compression Device (SCD) *Heparin 5000 units SQ BID 3-4 Higher Order ONE of the following medications: *Heparin 5000 units SQ TID *Enoxaparin/Lovenox 40 mg SQ daily (WT < 150 kg, CrCl > 30 mL/min) *Enoxaparin/Lovenox 30 mg SQ daily (WT < 150 kg, CrCl > 10-29 mL/min) *Enoxaparin/Lovenox 30 mg SQ BID (WT < 150 kg, CrCl > 30 mL/min) AND/OR *Sequential Compression Device (SCD) 5 or more Highest Order ONE of the following medications: *Heparin 5000 units SQ TID (Preferred with Epidurals) *Enoxaparin/Lovenox 40 mg SQ daily (WT < 150 kg, CrCl > 30 mL/min) *Enoxaparin/Lovenox 30 mg SQ daily (WT < 150 kg, CrCl > 10-29 mL/min) *Enoxaparin/Lovenox 30 mg SQ BID (WT < 150 kg, CrCl > 30 mL/min) AND *Sequential Compression Device (SCD) Assessment and Plan Assessment and Plan * Chest pain: Patient has had serial cardiac enzymes and EKGs for ruling out purposes. She will be seen by Dr. Downey of cardiology in the chest pain center and undergo a Lexiscan myocardial perfusion stress test. She will be discharged home if her stress test is nonischemic with instructions to follow- up with PCP. Return to ED for interval issues. * Hyperlipidemia: Patient is to continue her statin. * Schizoaffective disorder: Continue medications. Patient is stable at this time. She is agreeable to this plan. Duane Lenz Sep 23, 2017 08:31
[2017-09-23] MEDS ORDERED: RESP: ALBUTEROL 2.5 MG/IPRATROPIUM 0.5 MG NEB (PRN) INH (08:45)
[2017-09-23] MEDS: LURASIDONE 40 MG TAB PO SCH (09:00)
[2017-09-23] MEDS ORDERED: REGADENOSON INJ 0.4 MG/5 ML SYR ONE (10:19)
--- NOTE | 2017-09-23 10:51 | EKG ---
Date Performed: 09/23/2017 Time Performed: 03:55:15 PTAGE: 67 years EKG: Sinus rhythm NORMAL ECG PREVIOUS TRACING : 09/23/2017 00.21 Since previous tracing, no significant change noted DOCTOR: Dionte Downey Interpretating Date/Time 09/23/2017 10:50:05
--- NOTE | 2017-09-23 10:51 | EKG ---
Date Performed: 09/23/2017 Time Performed: 00:21:09 PTAGE: 67 years EKG: Sinus rhythm LOW QRS VOLTAGE IN PRECORDIAL LEADS BORDERLINE ECG PREVIOUS TRACING : 01/14/2017 23.13 Since previous tracing, no significant change noted DOCTOR: Dionte Downey Interpretating Date/Time 09/23/2017 10:50:25
--- NOTE | 2017-09-23 10:51 | EKG ---
Date Performed: 09/23/2017 Time Performed: 06:36:35 PTAGE: 67 years EKG: Sinus rhythm NORMAL ECG PREVIOUS TRACING : 09/23/2017 03.55 Since previous tracing, no significant change noted DOCTOR: Dionte Downey Interpretating Date/Time 09/23/2017 10:50:40
[2017-09-23] MEDS: PRAVASTATIN SOD 10 MG TAB PO SCH (12:03)
[2017-09-23] MEDS: FLUoxetine HCL 20 MG CAP PO SCH (12:03)
[2017-09-23] MEDS: SODIUM CHLORIDE 0.9% FLUSH 10 ML FLUSH IV FLUSH SCH ×2 (12:03→20:51)
[2017-09-23] MEDS: busPIRone HCL 10 MG TAB PO SCH ×3 (12:03→18:20)
[2017-09-23] MEDS: LORazepam 0.5 MG TAB PO SCH ×2 (12:03→20:51)
--- NOTE | 2017-09-23 12:07 | RADRPT ---
EXAM DATE/TIME: 09/23/2017 10:15 [facility] COMPARISON: No previous studies available for comparison. INDICATIONS : Left side chest pain. Angina. DOSE: 25.6 mCi Tc99m Myoview at stress. 8.8 mCi Tc99m Myoview at rest. 0.4 mg Lexiscan STRESS SYMPTOMS: Head pressure, shortness of breath. EJECTION FRACTION: > 70% MEDICAL HISTORY : Chronic obstructive pulmonary disease. SURGICAL HISTORY : Tubal ligation. ENCOUNTER: Initial ACUITY: 1 day PAIN SCALE: 4/10 LOCATION: Left chest TECHNIQUE: The patient underwent pharmacologic stress with infusion of prescribed dose. Continuous ECG tracing was monitored during stress. Gated SPECT imaging was performed after stress and conventional SPECT i maging was performed at rest. The examination was performed on a SPECT/CT scanner, both attenuation and non-corrected datasets were reviewed. FINDINGS: DISTRIBUTION: The maximum perfused segment at stress is in the inferior wall. PERFUSION STUDY: Stressed induced hypoperfusion is present in the anterior and anterolateral wall with almost complete reperfusion at rest. GATED STUDY: There is intact wall motion and thickening without hypokinetic or dyskinetic segments. CONCLUSION: 1. Large stress induced reversible perfusion abnormality in the anterior and anterolateral wall the l eft ventricle. 2. No significant associated wall motion abnormality. 3. 70% ejection fraction. RISK CATEGORY: High (>3% Annual Mortality Rate) Niall Roberto MD on September 23, 2017 at 12:02 Board Certified Radiologist. This report was verified electronically.
[2017-09-23] MEDS ORDERED: HALO2TAB PO (12:19)
[2017-09-23] MEDS: METOPROLOL TARTRATE 25 MG TAB PO SCH ×2 (13:09→20:51)
[2017-09-23] MEDS: NITROGLYCERIN 2% OINT 1 GM PACKET TOPICAL SCH ×2 (13:09→18:20)
[2017-09-23] MEDS: traZODone HCL 100 MG TAB PO SCH (20:51)
[2017-09-24] VITALS (15 sets, daily range): BP systolic 90–158; BP diastolic 47–53; PULSE 56–72; RESP 15–18; TEMP 97.4–98.3; O2SAT 95–99
[2017-09-24] MEDS: NITROGLYCERIN 2% OINT 1 GM PACKET TOPICAL SCH ×5 (01:07→18:00)
[2017-09-24] MEDS ORDERED: SODIUM CHLOR 0.9% 1000 ML INJ 1,000 ML IV ONE (02:00)
[2017-09-24] MEDS ORDERED: SENNOSIDES 8.6 MG TAB PO PRN (08:00)
[2017-09-24] MEDS ORDERED: ACETAMINOPHEN 325 MG TAB PO PRN ×2 (08:00)
[2017-09-24] MEDS ORDERED: ONDANSETRON HCL 4 MG/2 ML VIAL IVP PRN (08:00)
[2017-09-24] MEDS ORDERED: MORPHINE SULFATE 4 MG/ML INJ IV PUSH PRN (08:00)
[2017-09-24] MEDS ORDERED: ACETAMINOPHEN/HYDROcodone 325 MG/5 MG TAB PO PRN (08:00)
[2017-09-24] MEDS ORDERED: NALOXONE HCL 0.4 MG/ML AMP IV PUSH PRN (08:00)
[2017-09-24] MEDS ORDERED: ACETAMINOPHEN/HYDROcodone 325 MG/7.5 MG TAB PO PRN (08:00)
[2017-09-24] MEDS ORDERED: BISACODYL 10 MG SUPP RECTAL PRN (08:00)
[2017-09-24] MEDS ORDERED: LACTULOSE SYRUP 20 GM/30 ML CUP PO PRN (08:00)
[2017-09-24] MEDS ORDERED: MAGNESIUM HYDROXIDE SUSP 30 ML CUP PO PRN (08:00)
[2017-09-24] MEDS: SODIUM CHLORIDE 0.9% FLUSH 10 ML FLUSH IV FLUSH SCH ×2 (09:12→20:48)
[2017-09-24] MEDS: FLUoxetine HCL 20 MG CAP PO SCH (09:13)
[2017-09-24] MEDS: LORazepam 0.5 MG TAB PO SCH ×2 (09:13→20:48)
[2017-09-24] MEDS: METOPROLOL TARTRATE 25 MG TAB PO SCH ×2 (09:13→20:49)
[2017-09-24] MEDS: PRAVASTATIN SOD 10 MG TAB PO SCH (09:13)
[2017-09-24] MEDS: LURASIDONE 40 MG TAB PO SCH (09:13)
[2017-09-24] MEDS: ASPIRIN 325 MG TAB PO SCH (09:13)
[2017-09-24] MEDS: busPIRone HCL 10 MG TAB PO SCH ×3 (10:17→18:12)
[2017-09-24] MEDS: HEPARIN SODIUM - SQ 10,000 UNITS/ML VIAL SQ SCH ×2 (10:17→20:48)
[2017-09-24] MEDS: DOCUSATE SODIUM 50 MG/SENNA 8.6 MG TAB PO SCH ×2 (10:17→20:48)
--- NOTE | 2017-09-24 10:59 | TR ---
Date Performed: 09/23/2017 Time Performed: 10:36:52 DOCTOR: Dionte Downey DRUG LIST: CLINICAL HISTORY: ANGINA REASON FOR TEST: REASON FOR ENDING: OBSERVATION: CONCLUSION: Lexiscan stress test was performed under standard four minute protocol. Radionuclid e was injected one minute prior to ending the test. No electrocardiographic abormalities were present to suggest ischemia. Nuclear imaging and interpretation are pending. COMMENTS:
--- NOTE | 2017-09-24 11:03 | PD.CONS ---
HPI Consult Requested By Primary Care Physician Unknown History of Present Illness 67-year-old female with history of hyperlipidemia that presents with a complaint of chest discomfort. When asked to describe the chest discomfort she states "my heart felt hollow." She states that there is some nausea but that was present before the chest discomfort. Had no shortness of breath or diaphoresis. The discomfort will last maybe a second but continue to recur for about an hour and a half. It began while she was talking with her brother over the phone. Cannot recall having symptoms like this in the past. Cannot recall prior cardiac testing. Denies recent illnesses. Denies fevers or chills. Found nothing to bring on the discomfort. Review of Systems Consitutional: DENIES: Fatigue, Fever, Chills, Weight gain, Weight loss Eyes: DENIES: Amaurosis Fugax, Change in vision Respiratory: DENIES: See HPI, Cough, Snoring, Shortness of breath, Wheezing, Sputum production Cardiovascular: COMPLAINS OF: See HPI Gastrointestinal: DENIES: Nausea, Vomiting, Change in bowel habits, Reflux, Bloody stools, Melena Genitourinary: DENIES: Urinary incontinence, Difficulty voiding Integumentary: DENIES: Rash Neurologic: DENIES: Tingling or numbness, Memory problems, Poor Balance, Stroke symptoms Musculoskeletal: DENIES: Joint pain, Muscle pain, Limited range of motion, Back pain Psychiatric: DENIES: Anxiety, Depression, Sleep disturbances Hematologic: DENIES: Bruising tendencies, Bleeding tendencies Endocrine: DENIES: Weight gain, Weight loss, Thyroid disease Past Family Social History Allergies: Coded Allergies: No Known Allergies (Unverified Allergy, Unknown, 09/23/17) Past Medical History Hyperlipidemia, schizoaffective disorder, asthma, COPD, and past tobacco abuser. Denies diabetes, hypertension, and CAD. Past Surgical History Left elbow, rhinoplasty 2, breast augmentation. Reported Medications Reported Meds & Active Scripts Active Reported Haloperidol 2 Mg Tab 2 Mg PO HS Trazodone (Trazodone HCl) 100 Mg Tablet 100 Mg PO HS Lorazepam 0.5 Mg Tab 0.5 Mg PO BID Latuda (Lurasidone) 40 Mg Tab 40 Mg PO DAILY Aspirin 81 Mg Chew 81 Mg CHEW DAILY Zocor (Simvastatin) 5 Mg Tab 5 Mg PO DAILY Buspirone (Buspirone HCl) 10 Mg Tab 10 Mg PO TID Prozac (Fluoxetine HCl) 40 Mg Cap 40 Mg PO DAILY Active Ordered Medications Current Medications Medications (Trade) Dose Ordered Sig/Elaine Route Start Time Stop Time Status Last Admin (NS Flush) 2 ml UNSCH PRN IV FLUSH 09/23/17 02:30 (NS Flush) 2 ml BID IV FLUSH 09/23/17 09:00 09/24/17 09:12 (Duoneb Neb) 1 ampule Q4HR NEB PRN INH 09/23/17 08:45 (Buspar) 10 mg TID PO 09/23/17 09:00 09/24/17 10:17 (Ativan) 0.5 mg BID PO 09/23/17 09:00 09/24/17 09:13 (Latuda) 40 mg DAILY PO 09/23/17 09:00 09/24/17 09:13 (PROzac) 40 mg DAILY PO 09/23/17 09:00 09/24/17 09:13 (Pravachol) 10 mg DAILY PO 09/23/17 09:00 09/24/17 09:13 (Desyrel) 100 mg HS PO 09/23/17 21:00 09/23/17 20:51 (Aspirin) 325 mg DAILY PO 09/24/17 09:00 09/24/17 09:13 (Lopressor) 25 mg Q12HR PO 09/23/17 12:30 09/24/17 09:13 (Nitroglycerin 2% Oint) 0.5 inch Q6HR TOPICAL 09/23/17 12:45 09/23/17 18:20 (Tylenol) 650 mg Q4H PRN PO 09/24/17 08:00 (Zofran Inj) 4 mg Q6H PRN IVP 09/24/17 08:00 (Heparin Inj) 5,000 units Q12H SQ 09/24/17 09:00 09/24/17 10:17 (Tylenol) 650 mg Q6H PRN PO 09/24/17 08:00 ([place] 5-325 Mg) 1 tab Q4H PRN PO 09/24/17 08:00 ([place] 7.5-325 Mg) 1 tab Q4H PRN PO 09/24/17 08:00 (Morphine Inj) 1 mg Q3H PRN IV PUSH 09/24/17 08:00 (Narcan Inj) 0.4 mg UNSCH PRN IV PUSH 09/24/17 08:00 (Hailey-Colace) 1 tab BID PO 09/24/17 09:00 09/24/17 10:17 (Milk Of Magnesia Liq) 30 ml Q12H PRN PO 09/24/17 08:00 (Senokot) 17.2 mg Q12H PRN PO 09/24/17 08:00 (Dulcolax Supp) 10 mg DAILY PRN RECTAL 09/24/17 08:00 (Lactulose Liq) 30 ml DAILY PRN PO 09/24/17 08:00 (Haldol) 2 mg HS PO 09/24/17 21:00 Family History She states that her father at age 87 of an [place]. When asked if he had any earlier onset of heart issue she states "he was always in the hospital for pain." States her mother and siblings do not have CAD. Social History Patient quit smoking 3 years ago. Prior that she would smoke 2 pack of cigarettes daily for 30 years. She's had no alcohol for 3-1/2 years. Denies illicit drugs. She lives alone. 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 Physical Exam Vital Signs Vital Signs Date Time Temp Pulse Resp B/P (MAP) Pulse Ox O2 Delivery O2 Flow Rate FiO2 09/24/17 08:52 99 21 09/24/17 08:46 97.6 64 16 158/53 (88) 99 09/24/17 04:00 60 09/24/17 04:00 60 09/24/17 03:58 97.4 61 18 106/49 (68) 97 09/24/17 03:18 103/51 (68) 09/24/17 02:57 98/53 (68) 09/24/17 01:04 97.6 60 15 95/47 (63) 96 09/24/17 00:00 60 09/24/17 00:00 60 09/23/17 20:30 98.0 70 17 103/52 (69) 98 09/23/17 20:11 94 09/23/17 20:00 60 09/23/17 17:48 57 09/23/17 16:31 96.8 80 20 130/62 (84) 95 09/23/17 12:23 96.8 80 18 132/63 (95) 96 Physical Exam GENERAL: Well-nourished, well-developed patient. SKIN: Warm and dry. HEAD: Normocephalic. EYES: No scleral icterus. No injection or drainage. NECK: Supple, trachea midline. No JVD or lymphadenopathy. CARDIOVASCULAR: Regular rate and rhythm without murmurs, gallops, or rubs. RESPIRATORY: Breath sounds equal bilaterally. No accessory muscle use. GASTROINTESTINAL: Abdomen soft, non-tender, nondistended. EXTREMITIES: No cyanosis, or edema. NEUROLOGICAL: Awake, alert, and oriented x 3. Non-focal. Result Diagram: 09/23/17 0050 09/23/17 005 Imaging Last Impressions Chest X-Ray 09/23/17 0044 Signed Impressions: Service Date/Time: Saturday, September 23, 2017 00:47 - CONCLUSION: 1. No acute cardiopulmonary disease. Ren Quiñonez MD Myocardial Perfusion Scan Nuc Med 09/23/17 0000 Signed Impressions: Service Date/Time: Saturday, September 23, 2017 10:15 - CONCLUSION: 1. Large stress induced reversible perfusion abnormality in the anterior and anterolateral wall the left ventricle. 2. No significant associated wall motion abnormality. 3. 70%% ejection fraction. RISK CATEGORY: High (>3%% Annual Mortality Rate) Niall Roberto MD Assessment and Plan Problem List: (1) Chest pain ICD Codes: R07.9 - Chest pain, unspecified Status: Acute Plan: 67 y/o F with chest and positive MPI showing large reversible defect in the inferior wall. Reasonable to pursue LHC +/- PCI in am. Risk benefits of LHC/ PCI including but not limited to bleeding , Nimisha, neurovascular trauma, NIMISHA, emergent CABG, CV and have been explained to patient. She understands risk and is willing to proceed. Plan: Keep NPO for LHC +/- PCI in AM Cont aggressive medical management for CAD Ash Goldberg MD, Pedro R MD Sep 24, 2017 11:03
[2017-09-24 12:26] LABS: HDL CHOLESTEROL 34.9 MG/DL (40.0-60.0); LDL CHOLESTEROL 62 MG/DL (0-99)
--- NOTE | 2017-09-24 14:45 | HHI.PR ---
Subjective Remarks Follow-up chest pain. No further chest pain. Agrees with further cardiac intervention secondary to abnormal stress test. Discussed with cardiology and RN Objective Vitals Vital Signs Date Time Temp Pulse Resp B/P (MAP) Pulse Ox O2 Delivery O2 Flow Rate FiO2 09/24/17 12:47 98.3 72 16 96/48 (64) 97 09/24/17 12:13 66 09/24/17 08:52 99 21 09/24/17 08:46 97.6 64 16 158/53 (88) 99 09/24/17 07:30 56 09/24/17 04:00 60 09/24/17 04:00 60 09/24/17 03:58 97.4 61 18 106/49 (68) 97 09/24/17 03:18 103/51 (68) 09/24/17 02:57 98/53 (68) 09/24/17 01:04 97.6 60 15 95/47 (63) 96 09/24/17 00:00 60 09/24/17 00:00 60 09/23/17 20:30 98.0 70 17 103/52 (69) 98 09/23/17 20:11 94 09/23/17 20:00 60 09/23/17 17:48 57 09/23/17 16:31 96.8 80 20 130/62 (84) 95 I/O 09/23/17 09/23/17 09/23/17 09/24/17 09/24/17 09/24/17 07:00 15:00 23:00 07:00 15:00 23:00 Intake Total 500 ml Balance 500 ml Intake IV Total 500 ml Result Diagram: 09/23/17 0050 09/23/17 0050 Imaging Last Impressions Chest X-Ray 09/23/17 0044 Signed Impressions: Service Date/Time: Saturday, September 23, 2017 00:47 - CONCLUSION: 1. No acute cardiopulmonary disease. Ren Quiñonez MD Myocardial Perfusion Scan Nuc Med 09/23/17 0000 Signed Impressions: Service Date/Time: Saturday, September 23, 2017 10:15 - CONCLUSION: 1. Large stress induced reversible perfusion abnormality in the anterior and anterolateral wall the left ventricle. 2. No significant associated wall motion abnormality. 3. 70%% ejection fraction. RISK CATEGORY: High (>3%% Annual Mortality Rate) Niall F. Felisa, MD Objective Remarks GENERAL: Well-developed, well-nourished in no distress SKIN: Warm and dry. HEAD: Atraumatic. Normocephalic. EYES: Pupils equal and round. No scleral icterus. No injection or drainage. ENT: No nasal bleeding or discharge. Mucous membranes pink and moist. NECK: Trachea midline. No JVD. CARDIOVASCULAR: Regular rate and rhythm. RESPIRATORY: No accessory muscle use. Clear to auscultation. Breath sounds equal bilaterally. GASTROINTESTINAL: Abdomen soft, non-tender, nondistended. MUSCULOSKELETAL: Extremities without clubbing, cyanosis, or edema. No obvious deformities. NEUROLOGICAL: Awake and alert. No obvious cranial nerve deficits. Motor grossly within normal limits. Five out of 5 muscle strength in the arms and legs. Normal speech. PSYCHIATRIC: Appropriate mood and affect; insight and judgment normal. Procedures None A/P Problem List: (1) Chest pain ICD Code: R07.9 - Chest pain, unspecified Status: Acute Assessment and Plan Chest pain. Patient ruled out for [place] but has abnormal stress test for left heart catheterization the morning. Continue aspirin, nitrates, beta tenisha and Pravachol. Follow-up A1c. LDL 62. Leukocytosis likely reactive. We will monitor Hyperlipidemia. Continue statins COPD. Stable continue nebulizations as needed. SAD. Patient stable continue home medications DVT prophylaxis with SCD and subcutaneous heparin Discharge Planning Discharge when cleared by cardiology Baldemar Adame MD Sep 24, 2017 14:45
[2017-09-24] MEDS: traZODone HCL 100 MG TAB PO SCH (20:48)
[2017-09-24] MEDS ORDERED: HALOPERIDOL 2 MG TAB PO SCH (21:00)
[2017-09-25] VITALS: PULSE 60
[2017-09-25 00:21] VITALS: BP 98/52; PULSE 61; RESP 17; TEMP 97.5; O2SAT 97
[2017-09-25 03:52] VITALS: BP 97/52; PULSE 68; RESP 16; TEMP 97.9; O2SAT 98
[2017-09-25 04:00] VITALS: PULSE 78
[2017-09-25] MEDS: NITROGLYCERIN 2% OINT 1 GM PACKET TOPICAL SCH ×2 (05:49)
[2017-09-25 07:30] VITALS: PULSE 64
[2017-09-25 08:30] VITALS: BP 104/51; PULSE 66; RESP 16; TEMP 97.6; O2SAT 96
[2017-09-25] MEDS: METOPROLOL TARTRATE 25 MG TAB PO SCH (08:42)
[2017-09-25] MEDS: LURASIDONE 40 MG TAB PO SCH (08:52)
[2017-09-25] MEDS: SODIUM CHLORIDE 0.9% FLUSH 10 ML FLUSH IV FLUSH SCH (08:52)
[2017-09-25] MEDS: DOCUSATE SODIUM 50 MG/SENNA 8.6 MG TAB PO SCH (08:52)
[2017-09-25] MEDS: busPIRone HCL 10 MG TAB PO SCH (08:54)
[2017-09-25] MEDS: FLUoxetine HCL 20 MG CAP PO SCH (08:54)
[2017-09-25] MEDS: LORazepam 0.5 MG TAB PO SCH (08:54)
[2017-09-25] MEDS: ASPIRIN 325 MG TAB PO SCH (08:55)
[2017-09-25] MEDS: PRAVASTATIN SOD 10 MG TAB PO SCH (08:56)
[2017-09-25] MEDS: HEPARIN SODIUM - SQ 10,000 UNITS/ML VIAL SQ SCH (08:56)
[2017-09-25] MEDS ORDERED: VERAPAMIL HCL 5 MG/2 ML VIAL ONE (11:25)
[2017-09-25] MEDS ORDERED: HEPARIN SODIUM - IV 10,000 UNITS/10 ML VIAL ONE (11:25)
[2017-09-25] MEDS ORDERED: MIDAZOLAM HCL 2 MG/2 ML VIAL ONE (11:25)
[2017-09-25] MEDS ORDERED: NITROGLYCERIN INJ 5 ML ONE (11:25)
[2017-09-25] MEDS ORDERED: HEPARIN-NS/PF INJ 1,000 ML ONE (11:25)
[2017-09-25] MEDS ORDERED: SODIUM CHLOR 0.9% 1000 ML INJ 1,000 ML IV SCH (12:18)
--- NOTE | 2017-09-25 12:19 | CATHPROC ---
[facility] HIS Report Study Information Study Number Admission Scheduled Start Study Start [id number] Sep 23 2017 2:25AM 09/25/2017 Sep 25 2017 11:04AM [facility] Cardiac Catheterization Admit Source Facility Department Other [facility] - Study Manager Physician and Clinical Staff Initial Ash Chawla Post Hole Digger Ainsley Del Valle,JAVIER Post Hole Digger Swathi Yee BSN Recorder Quentin Mix RCIS(BS) Scrub Belinda Julian RT(R) Procedures Performed Procedure Location (Site) Vessel Name Coronary Angiograms LCA Left Coronary Coronary Angiograms RCA Right Coronary L Heart Cath Equipment Time Component Assembler Description Size Mfg Part Number Used/Scraped MYNX WELT EDGE ROUNDER CLOSURE DEVICE [id number] 12:01 ACCESS CLOSURE INC. FR 5 Used TAVR *[id number] TAVR TRANSDUCER, TRUWAVE [id number] 11:51 BROWN PARKS * Used W/STOCKCOCK *[id number] INTRODUCER SET, 11:53 [employer]OOK INC. FR 5 [id number] *[id number] Used MICROPUNCTURE, STIFFENED [id number] *[id number] 534-521T *[id number] 11:51 Clickst PACK, CCL CUSTOM * Used *[id number] 11:51 Clickst SUPPORT, ARTERIAL ADULT [id number] *[id number] Used [id number] 11:51 Nitero MEDICAL WIRE, 3MMJ .035 180CM 180CM Used *[id number] 11:51 NAMIC MANIFOLD, 4 PORT * Used *[id number] 11:51 NYCOMED OMNIPAQUE, 350 MG, 150ML 150ML [id number] Used [id number] 11:51 [facility] BLANKET,WARM AIR CCL * Used *[id number] 11:53 TERUMO MEDICAL SHEATH, FR5 TERUMO (10CM) FR 5 Used *[id number] SHEATH, FR6 TRANSRADIAL [id number] 11:51 TERUMO MEDICAL FR 6 Used SLENDER 10CM *[id number] Equipment Model, Serial, Lot Number and Expiration Data Description Model Number Serial Number Lot Number Expiration Date INTRODUCER SET, [id number] 04-20-2020 MICROPUNCTURE, STIFFENED History: Allergies Allergy Reaction No Known Allergies History: Risk Factors Family History of Hypertension Dyslipidemia Previous MN Previous Heart Failure Premature CAD Yes Yes Yes No No Prior Valve Prior PCI Prior CABG Surgery No No No Cerebrovascular Peripheral Artery Chronic Lung On Dialysis Diabetes Disease Disease Disease No No No Yes No History: Stress Tests Stress or Imaging Studies Performed Yes Standard Exercise Stress Test No Stress Echo No Stress Test SPECT Stress Test SPECT Result Stress Test SPECT Ischemia Risk/Extent Yes Positive Intermediate Stress Test CMR No Cardiac CTA Coronary Calcium Score No No History: Other Current Smoker Method Quit Packs a Day Years Used Pack Years No Cigarettes 3 Years Ago 2 30 60 Labs Hgb (g/dl) Hct (%) WBC (l/cumm) Platelets (thousands) 11.60-17.00 35.00-51.00 4.00-11.00 150.00-450.00 12.0 35.4 12.7 321 Glucose (mg/dl) BUN (mg/dl) Creatinine (mg/dl) BUN:Creatinine (1:x) 74.00-106.00 7.00-18.00 0.50-1.30 10.00-20.00 83 7 0.6 11.7 Na (meq/l) K (meq/l) 136.00-145.00 3.50-5.10 138 3.5 Troponin I (ng/ml) CPK (u/l) CPK-MB (ng/ML) 0.02-0.05 26.00-308.00 0.50-3.60 0.02 82 Not Drawn Medication Medication Total Dose (Bolus/Oral) Medication Total Dosage/Unit 1% XYLOCAINE 30 mL FENTANYL 50 mcg VERSED 2 mg Medications (Bolus/Oral) Medication Time Given Dosage/Unit Administered By Reason 09/25/2017 11:47:26 VERSED 2 mg Swathi Yee AM 2 mg VERSED given in lab by Swathi Yee BSN in Left Antecubital via Peripheral IV. Ordered b y Ash Goldberg. 09/25/2017 11:47:43 FENTANYL 50 mcg Swathi Yee AM 50 mcg FENTANYL given in lab by Swathi Yee BSN in Left Antecubital via Peripheral IV. Order ed by Ash Goldberg. 09/25/2017 11:48:52 1% XYLOCAINE 10 mL Ash Goldberg AM 10 mL 1% XYLOCAINE given in lab by Ash Goldberg in Right Radial via Subcutaneous. Ordered by Ash Christie. 09/25/2017 11:52:41 1% XYLOCAINE 20 mL Ash Goldberg AM 20 mL 1% XYLOCAINE given in lab by Ash Goldberg in Right Groin via Subcutaneous. Ordered by Ash Morales. Medication (Drip) Medication Time Given Dosage/Unit Concentration/Unit Diluent (ml) Solution 09/25/2017 11:14:28 IV Solutions 0 mL (IV) 500 NaCl .9 AM Patient arrived on IV Solutions in Left Antecubital via Peripheral IV. Pump/Drip Flow = 20 ml/hr usin g NaCl .9. Ordered by Ash Goldberg. Initial Case Assessment Cardiovascular HR Rhythm NIBP Chest Pain 61 SR 106/53 0 Edema Present Skin color Skin None Normal Warm Dry Circulatory - Right Pulses Dorsalis Pedis Femoral Radial 2 1 2 Scale (0,1,2,3,4,d) Circulatory - Left Pulses Dorsalis Pedis Femoral Radial 2 1 Scale (0,1,2,3,4,d) Circulatory - Lower Extremities Color Lower Right Color Lower Left Normal Normal Neurological State Oriented to time-place- Alert Moves all extremities person Respiration - General Respiration Rate SpO2 (%) (B/min) 13 97 Final Case Assessment Cardiovascular HR Rhythm NIBP Chest Pain 61 SR 102/54 0 Edema Present Skin color Skin None Normal Warm Dry Circulatory - Right Pulses Dorsalis Pedis Femoral Radial 2 1 2 Scale (0,1,2,3,4,d) Circulatory - Left Pulses Dorsalis Pedis Femoral Radial 2 1 Scale (0,1,2,3,4,d) Circulatory - Lower Extremities Color Lower Right Color Lower Left Normal Normal Neurological State Oriented to time-place- Alert Moves all extremities person Respiration - General Respiration Rate SpO2 (%) (B/min) 13 97 Chronological Log Time Study Chronological Log 11:10:14 Patient arrived via Bed. 11:10:15 Patient Name, D.O.B, / Armband Verified By R.N. 11:10:16 Consent signed by the physician and the patient and verified by the Study Manager staff. 11:10:17 Pre-op and post- op instructions given; patient acknowledges understanding of instructions. 11:13:10 Verbal Stimulation=2 Physical Stimulation=2 Airway=2 Respiration=2 TOTAL=8. (0=absent, 1=li mited, 2=present) 11:13:24 Presedation assessment performed by Study Manager RN. 11:13:37 Patient has been NPO for More than 6Hrs. 11:13:39 Skin Breakdown/none per patient 11:13:52 Patient Warmer Placed on the Table. 11:13:53 Disposable Defibrillator Pads Placed On Patient. 11:14:27 A # 20 IV was noted in the Antecubital (left). Grade = 0 Patient arrived on IV Solutions in Left Antecubital via Peripheral IV. Pump/Drip Flow = 20 ml/h r using NaCl .9. Ordered 11:14:28 by Ash Goldberg. 11:14:29 History and physical on the chart or being dictated. Assessment: Initial Case, HR=61 BPM, Rhythm=SR, JSCE=862/53 mmhg, Chest Pain=0, Edema=None, Col or=Normal, Skin = Warm, Dry Right Pulses: Hans Ped=2, Femoral=1, Radial=2 Left Pulses: Hans Ped=2, Femoral=1 11:14:30 Lower Right Extremities: Color=Normal Lower Left Extremities: Color=Normal Neurological: State=Alert, Ox3, TORRE Respiration: Resp=13 B/min, SpO2=97 % 11:17:10 Allens test performed on the right radial and ulnar artery. Vitals capture started with the following parameters, Patient=Adult, Interval=5 min, Initial Pr nnqvxb=678 mmHg, 11:22:23 Deflation Rate=5 mmHg, Cuff placed on Left Arm 11:23:11 HR=59 bpm, EVWS=890/53 mmhg, SpO2=97.0 %, Resp=5 B/min, Pain=0, Stu=10, Barrera=2 11:23:43 Reference ECG taken 11:27:58 HR=62 bpm, UYUW=094/45 mmhg, SpO2=97.0 %, Resp=24 B/min, Pain=0, Stu=10, Barrera=2 11:31:40 Right Radial and groin(s) prepped with 2% chlorhexidine, and draped after a 3 min. waiting time. 11:32:57 HR=60 bpm, TJLQ=920/43 mmhg, SpO2=97.0 %, Resp=19 B/min, Pain=0, Stu=10, Barrera=2 11:34:43 Pressure channel 1 zeroed. 11:37:48 paged 11:37:56 HR=63 bpm, NIBP=95/53 mmhg, SpO2=98.0 %, Resp=13 B/min, Pain=0, Stu=10, Barrera=2 11:42:55 HR=61 bpm, DLSG=699/50 mmhg, Resp=13 B/min, Pain=0, Stu=10, Barrera=2 11:46:45 MD arrived. 2 mg VERSED given in lab by Swathi Yee BSN in Left Antecubital via Peripheral IV. Ord ered by Ashlyn, 11:47:26 Ash. 50 mcg FENTANYL given in lab by Swathi Yee BSN in Left Antecubital via Peripheral IV. Ordered by Lopez 11:47:43 Amaury Ash. 11:48:00 HR=66 bpm, UWEN=238/46 mmhg, SpO2=96.0 %, Resp=7 B/min, Pain=0, Stu=10, Barrera=2 Time Out. Correct patient, correct procedure, correct physician, power injector loaded, or not loaded with contrast with 11:48:03 surgical team present. Time Out Concurred by and individual staff in procedure. 11:48:25 Case Start 10 mL 1% XYLOCAINE given in lab by Ashlyn Ash in Right Radial via Subcutaneous. Ordered by Ashlyn, 11:48:52 Ash. 20 mL 1% XYLOCAINE given in lab by Ashlyn Ash in Right Groin via Subcutaneous. Ordered b y Ashlyn, 11:52:41 Ash. 11:52:57 HR=60 bpm, NIBP=92/56 mmhg, Resp=16 B/min, Pain=0, Stu=10, Barrera=2 11:53:20 Access site was Right Femoral Artery. A INTRODUCER SET, MICROPUNCTURE, STIFFENED FR 5 was advanced into the Fem Art (right) using the 11:53:32 Percutaneous technique. A SHEATH, FR5 TERUMO (10CM) FR 5 was exchanged in the Fem Art (right). This was necessary in or jane to 11:53:59 accomodate a larger catheter. A JR 4.0 INFINITI CATHETER FR 5 was advanced over a wire. OMNIPAQUE, 350 MG, 150ML 150ML was us ed for 11:55:10 injections. Recorded Pressure: LV, HR=60, Condition=Condition 1 11:55:43 (Left Ventricle) LV 93/-2/5 Recorded Pressure: LV, Ao, HR=62, Condition=Condition 1 11:56:10 (Left Ventricle) LV 94/-1/6, (Aorta) Ao 99/48/69 11:56:29 The RCA was injected and visualized at various angles. OMNIPAQUE, 350 MG, 150ML 150ML used . 11:56:42 Catheter was removed A JL 3.5 INFINITI CATHETER FR 5 was advanced over a wire. OMNIPAQUE, 350 MG, 150ML 150ML was us ed for 11:56:45 injections. 11:56:53 The LCA was injected and visualized at various angles. OMNIPAQUE, 350 MG, 150ML 150ML used . Recorded Pressure: Ao, HR=65, Condition=Condition 1 11:57:42 (Aorta) Ao 111/53/77 11:58:35 HR=64 bpm, YOWM=918/54 mmhg, SpO2=96.0 %, Resp=13 B/min, Pain=0, Stu=10, Barrera=2 11:58:55 Catheter was removed 11:59:05 Case End Recorded Pressure: Ao, HR=65, Condition=Condition 1 11:59:36 (Aorta) Ao 118/51/77 Assessment: Final Case, HR=61 BPM, Rhythm=SR, AFOL=826/54 mmhg, Chest Pain=0, Edema=None, Emblem r=Normal, Skin = Warm, Dry Right Pulses: Hans Ped=2, Femoral=1, Radial=2 Left Pulses: Hans Ped=2, Femoral=1 11:59:51 Lower Right Extremities: Color=Normal Lower Left Extremities: Color=Normal Neurological: State=Alert, Ox3, TORRE Respiration: Resp=13 B/min, SpO2=97 % 12:00:35 MYNX WELT EDGE ROUNDER CLOSURE DEVICE TAVR FR 5 placement in the Fem Art (right) 12:02:57 HR=62 bpm, ZULD=767/55 mmhg, SpO2=94.0 %, Resp=24 B/min, Pain=0, Stu=10, Barrera=2 12:03:55 Sterile dressing applied to site 12:03:56 No case complications noted. 12:03:58 Cine recording checked. 12:07:15 NIBP STAT measurement started. 12:07:50 HR=62 bpm, NIBP=93/50 mmhg, Resp=17 B/min, Pain=0, Stu=10, Barrera=2 12:11:10 Bedside Report will be given. 12:11:13 Contrast Scanned 12:11:16 A Left Heart Cath was performed. 12:12:55 HR=62 bpm, JCHS=891/52 mmhg, SpO2=95.0 %, Resp=17 B/min, Pain=0, Stu=10, Barrera=2 12:19:16 Patient moved to stretcher End Study - Contrast Media Used In Study Contrast Total Opened (mL) Total Used (mL) Total Wasted (mL) Omnipaque 15 15 0 End Study - Maximum Contrast Load Max Contrast Load (mL) 550.0 End Study - Radiation Exposure Fluoro Time (minutes) 1.5 End Study - Patient Disposition Complications Transferred To Telemetry Bed
[2017-09-25] MEDS ORDERED: ATROPINE SULFATE 1 MG/ML VIAL IV PUSH PRN (12:30)
[2017-09-25] MEDS ORDERED: BACITRACIN OINT 0.9 GM PKT TOP ONE (12:30)
[2017-09-25] MEDS ORDERED: LIDOCAINE HCL 1% 50 ML VIAL INFIL PRN (12:30)
[2017-09-25] MEDS ORDERED: ONDANSETRON HCL 4 MG/2 ML VIAL IV PUSH PRN (12:30)
--- NOTE | 2017-09-25 12:48 | ECHRPT ---
Indication: coronary sclerosis CONCLUSIONS Normal LV function The aortic root and proximal ascending aorta are not well visualized. Trace mitral valve regurgitation. There is trace tricuspid valve regurgitation. The pulmonary valve is not well visualized. BP: / HR: Rhythm: MEASUREMENTS (Male / Female) Normal Values Technical Quality:Good 2D ECHO LV Diastolic Diameter PLAX 4.0 cm 4.2 - 5.9 / 3.9 - 5.3 cm LV Systolic Diameter PLAX 2.9 cm IVS Diastolic Thickness 0.8 cm 0.6 - 1.0 / 0.6 - 0.9 cm LVPW Diastolic Thickness 0.9 cm 0.6 - 1.0 / 0.6 - 0.9 cm LV Relative Wall Thickness 0.4 RV Internal Dim ED PLAX 2.0 cm M-MODE Aortic Root Diameter MM 2.2 cm LA Systolic Diameter MM 3.3 cm LA Ao Ratio MM 1.5 AV Cusp Separation MM 1.3 cm DOPPLER TR Peak Velocity 202.0 cm/s TR Peak Gradient 16.3 mmHg Right Atrial Pressure 10.0 mmHg Pulmonary Artery Systolic Pressu 26.3 mmHg Right Ventricular Systolic Press 26.3 mmHg FINDINGS LEFT VENTRICLE Normal left ventricular size and wall thickness. The left ventricular systolic function is normal wi th an estimated ejection fraction in the range of 60-65%. Left ventricular diastolic function parameters a re normal. RIGHT VENTRICLE Normal right ventricular size and systolic function. LEFT ATRIUM The left atrial size is normal. RIGHT ATRIUM The right atrial size is normal. ATRIAL SEPTUM Normal atrial septal thickness without atrial level shunting by limited color doppler interrogation. AORTA The aortic root and proximal ascending aorta are not well visualized. MITRAL VALVE Trace mitral valve regurgitation. Structurally normal mitral valve. AORTIC VALVE Trileaflet aortic valve. No aortic valve stenosis or regurgitation. TRICUSPID VALVE There is trace tricuspid valve regurgitation. PULMONARY VALVE The pulmonary valve is not well visualized. VESSELS The inferior vena cava is normal in size. PERICARDIUM No pericardial effusion. Rebecca Amaya MD, FACC (Electronically Signed) Final Date:25 September 2017 12:47
--- NOTE | 2017-09-25 12:49 | MA ---
cc: ASH BARRAZA DATE: 09/25/2017 DATE OF : 1950 PROCEDURE PERFORMED 1. Left heart catheterization. 2. Selective right and left coronary angiography. 3. Left ventriculogram. INDICATIONS Positive stress test. Chest pain. PROCEDURE DESCRIPTION Consent was signed. The patient was brought into the cardiac slab off mill tender in a fasting state. The right groin was prepped and draped in sterile fashion. Using 1% lidocaine for local anesthesia and a micropuncture kit a 5 Nigerian sheath was inserted into the right common femoral artery. Right common femoral artery angiography was performed to confirm position of the sheath then selective right and left coronary angiography was performed with a JR4 and JL4 diagnostic catheter. Angiography was taken in multiple views. The JR4 diagnostic catheter was introduced into the ventricle over a wire followed by pressure recordings of the left ventricle then a pullback. The patient tolerated the procedure without complications. Estimated blood loss less than 30 cc. Total contrast 50 cc. mL. The right groin access site was closed with a Mynx. RESULTS LEFT VENTRICLE The left ventricular pressure was 94/-1 with an LVEDP of 6. The aortic pressure was 180/51 with a mean of 77. There was no gradient upon pullback from the left ventricle to the aorta. Left ventriculography revealed symmetrically morales ventricle with an estimated ejection fraction of 60%. ANGIOGRAPHY 1. The right coronary artery is a dominant vessel giving off the PDA. It is patent with DEB-III flow and nonobstructive coronary artery disease. 2. The left main is giving off the LAD and the circumflex arteries, and is patent with DEB-III flow. 3. The LAD is a transapical vessel giving off one big diagonal vessel. The LAD and the diagonal are patent with DEB III flow and nonobstructive coronary artery disease. 4. The left circumflex artery AV groove segment is small but patent and then there is a big obtuse marginal vessel that is patent giving off another marginal artery to the lateral aspect of the heart. These vessels are patent with DEB-III flow and nonobstructive coronary artery disease. CONCLUSIONS 1. Nonobstructive coronary artery disease. 2. Preserved systolic function. RECOMMENDATIONS Aggressive medical management for primary prevention of CAD and therapeutic lifestyle changes. Ash Barraza MD CAMP BOSS/BT /12:18 PM /12:41 PM MTDJhony
[2017-09-25] MEDS ORDERED: METO25TA3 PO (14:07)
[2017-09-25] MEDS ORDERED: ASPI-516 CHEW (14:07)
--- NOTE | 2017-09-25 14:08 | HHI.DCPOC ---
Discharge Care Plan Diagnosis: (1) Chest pain Goals to Promote Your Health * To prevent worsening of your condition and complications * To maintain your health at the optimal level Directions to Meet Your Goals Take your medications as prescribed Follow your dietary instruction Follow activity as directed Keep your appointments as scheduled Take your immunizations and boosters as scheduled If your symptoms worsen call your PCP, if no PCP go to Urgent Care Center or Emergency Room Smoking is Dangerous to Your Health. Avoid second hand smoke Call the 24-hour hour crisis hotline for domestic abuse at Baldemar Adame MD Sep 25, 2017 14:08
--- NOTE | 2017-09-25 14:10 | HHI.DS ---
Discharge Summary Admission Date Sep 23, 2017 at 02:25 Discharge Date: Sep 25, 2017 Admitting Diagnosis Chest Pain (1) Chest pain ICD Code: R07.9 - Chest pain, unspecified Diagnosis: Principal Status: Acute Procedures Cardiac catheterization Brief History - From Admission This is a 67-year-old female with history of hyperlipidemia that presents with a complaint of chest discomfort. When asked to describe the chest discomfort she states "my heart felt hollow." She states that there is some nausea but that was present before the chest discomfort. Had no shortness of breath or diaphoresis. The discomfort will last maybe a second but continue to recur for about an hour and a half. It began while she was talking with her brother over the phone. Cannot recall having symptoms like this in the past. Cannot recall prior cardiac testing. Denies recent illnesses. Denies fevers or chills. Found nothing to bring on the discomfort. CBC/BMP: 09/23/17 0050 09/23/17 0050 Significant Findings Laboratory Tests Test 09/23/17 00:50 09/23/17 03:48 09/23/17 06:36 09/24/17 11:25 White Blood Count 12.7 TH/MM3 (4.0-11.0) Red Blood Count 3.91 MIL/MM3 (4.00-5.30) Eosinophils (%) (Auto) 4.4 % (0.0-4.0) Eosinophils # (Auto) 0.6 TH/MM3 (0-0.4) Calcium Level 8.4 MG/DL (8.5-10.1) Alkaline Phosphatase 128 U/L (45-117) Total Bilirubin 0.1 MG/DL (0.2-1.0) Estimat Glomerular Filtration Rate 86 ML/MIN (>89) Troponin I LESS THAN 0.02 NG/ML LESS THAN 0.02 NG/ML LESS THAN 0.02 NG/ML Triglycerides Level 185 MG/DL (42-150) HDL Cholesterol 34.9 MG/DL (40.0-60.0) Imaging Last Impressions Chest X-Ray 09/23/17 0044 Signed Impressions: Service Date/Time: Saturday, September 23, 2017 00:47 - CONCLUSION: 1. No acute cardiopulmonary disease. Ren Quiñonez MD Myocardial Perfusion Scan Nuc Med 09/23/17 0000 Signed Impressions: Service Date/Time: Saturday, September 23, 2017 10:15 - CONCLUSION: 1. Large stress induced reversible perfusion abnormality in the anterior and anterolateral wall the left ventricle. 2. No significant associated wall motion abnormality. 3. 70%% ejection fraction. RISK CATEGORY: High (>3%% Annual Mortality Rate) Niall Roberto MD PE at Discharge GENERAL: Well-developed, well-nourished in no distress SKIN: Warm and dry. HEAD: Atraumatic. Normocephalic. EYES: Pupils equal and round. No scleral icterus. No injection or drainage. ENT: No nasal bleeding or discharge. Mucous membranes pink and moist. NECK: Trachea midline. No JVD. CARDIOVASCULAR: Regular rate and rhythm. RESPIRATORY: No accessory muscle use. Clear to auscultation. Breath sounds equal bilaterally. GASTROINTESTINAL: Abdomen soft, non-tender, nondistended. MUSCULOSKELETAL: Extremities without clubbing, cyanosis, or edema. No obvious deformities. NEUROLOGICAL: Awake and alert. No obvious cranial nerve deficits. Motor grossly within normal limits. Five out of 5 muscle strength in the arms and legs. Normal speech. PSYCHIATRIC: Appropriate mood and affect; insight and judgment normal. Hospital Course Chest pain. Patient ruled out for NV but has abnormal stress test. Cardiac catheterization showing nonobstructive CAD recommended medical management. Continue aspirin, nitrates when necessary, beta tenisha and Pravachol. Follow- up A1c. LDL 62. Low suspicion for PE Leukocytosis likely reactive. We will monitor Hyperlipidemia. Continue statins COPD. Stable continue nebulizations as needed. SAD. Patient stable continue home medications DVT prophylaxis with SCD and subcutaneous heparin Pt Condition on Discharge: Stable Discharge Disposition: Discharge Home Discharge Time: > 30 minutes Discharge Instructions DIET: Follow Instructions for: As Tolerated, No Restrictions, Heart Healthy Diet Activities you can perform: Regular-No Restrictions Activities to Avoid: Driving Follow up Referrals: Cardiology - 1 Week PCP Follow-up - 1 Week New Medications: Nitroglycerin SL (Nitroglycerin SL) 0.4 Mg Subl 0.4 MG SL DIRECTED PRN for CHEST PAIN, #100 TAB.SL 0 Refills ONE TABLET UNDER THE TONGUE NEEDED FOR CHEST PAIN, MAY REPEAT EVERY FIVE MINUTES FOR A TOTAL OF 3 DOSES OR CALL 911 IF NO RELIEF Metoprolol Tartrate (Metoprolol Tartrate) 25 Mg Tab 25 MG PO Q12HR for Blood Pressure Management, #60 TAB Changed Medications: Aspirin (Aspirin) 81 Mg Chew 162 MG CHEW DAILY for Prevent Blood Clot, #60 TAB 0 Refills (Changed from: 81 MG ) Continued Medications: Buspirone (Buspirone) 10 Mg Tab 10 MG PO TID for Anxiety, TAB 0 Refills Fluoxetine (Prozac) 40 Mg Cap 40 MG PO DAILY, #30 CAP 0 Refills Haloperidol (Haloperidol) 2 Mg Tab 2 MG PO HS, TAB 0 Refills Lorazepam (Lorazepam) 0.5 Mg Tab 0.5 MG PO BID, TAB 0 Refills Lurasidone (Latuda) 40 Mg Tab 40 MG PO DAILY, #30 TAB 0 Refills Simvastatin (Zocor) 5 Mg Tab 5 MG PO DAILY for Cholesterol Management, #30 TAB 0 Refills Trazodone (Trazodone) 100 Mg Tablet 100 MG PO HS for Control Depression, #30 TAB 0 Refills Baldemar Adame MD Sep 25, 2017 14:10
[2017-09-25] MEDS ORDERED: NITR1SUB3 SL (14:11)
[2017-09-25 15:42] LABS: HEMOGLOBIN A1a 1.5 %; HEMOGLOBIN A1b 1.7 %; HEMOGLOBIN Ao 85.9 %; HEMOGLOBIN LA1C 1.7 %; HEMOGLOBIN P3 3.2 %
== END 2017-09-25 17:02 | disposition home or self-care (01) ==
LOC: NEPC 00:06 → NEDA 02:25 → NEPGCP 03:05 → HCIS 09-25 11:15
PROVIDERS: ADMIT Internal Medicine; ATTEND Internal Medicine
DX: I25.10 Atherosclerotic heart disease of native coronary artery without angina pectoris (principal); J44.9 Chronic obstructive pulmonary disease, unspecified; F32.9 Major depressive disorder, single episode, unspecified; F41.9 Anxiety disorder, unspecified; E78.5 Hyperlipidemia, unspecified; D64.9 Anemia, unspecified; F25.9 Schizoaffective disorder, unspecified; E83.51 Hypocalcemia; R79.1 Abnormal coagulation profile; R79.89 Other specified abnormal findings of blood chemistry; Z87.891 Personal history of nicotine dependence
CPT/HCPCS: 71010; 78452; 80053; 80061; 82550; 83036; 83735; 84484; 85025; 93005; 93017; 93306; 93458; 96360; 96372; 99152; 99153; 99285; A9502; C1760; C1769; C1893; G0269; G0378; J1644; J2250; J2785; J3010; J7030; J7040; Q9967